=== PATIENT | male | born 1955 | race Caucasian/White ===

== ENCOUNTER 2016-09-08 10:50 | Observation (INO) ==
[2016-09-08 11:24] LABS: Lymphocytes % 16.2 %
[2016-09-08 11:26] LABS: Basophils # 0.1 K/mcL (0.0-0.2); Eosinophils # 0.2 K/mcL (0.0-0.6); Eosinophils % 2.8 %; Hemoglobin 12.2 g/dL (12.9-16.9); Immature Granulocytes % 0.7 % (0-4); Immature Platelets 7.1 % (1.1-6.1); Mean Corpuscular HGB Conc 30.5 g/dL (31.6-35.5); Mean Corpuscular Volume 85.3 fL (83.0-100.0); Monocytes # 0.5 K/mcL (0.0-1.3); Monocytes % 7.4 %; Neutrophils # 4.4 K/mcL (1.6-8.9); Red Blood Count 4.69 M/mcL (4.19-5.50); Red Cell Distribution Width 14.8 % (11.5-14.5); Segmented Neutrophils % 71.9 %
[2016-09-08 11:29] LABS: INR 1.2; Prothrombin Time 12.8 Seconds (9.4-12.1)
[2016-09-08 11:31] LABS: Activated Partial Thrombo Time 32.5 Seconds (26.0-36.0)
[2016-09-08 11:37] LABS: BUN/Creatinine Ratio 15 (6-26); Blood Urea Nitrogen 12 mg/dL (8-26); Calcium 8.8 mg/dL (8.6-10.8); Carbon Dioxide 27 mEq/L (19-29); Chloride 107 mEq/L (98-109); Glucose 125 mg/dL (70-99); Osmolality,Calculated 293 (280-300); Potassium 3.8 mEq/L (3.5-4.5); Sodium 141 mEq/L (136-145); eGFR For African Americans > 60 (> 60); eGFR For Non-African Americans > 60 (> 60)
--- NOTE | 2016-09-08 11:40 | Emergency Department Note ---
Disposition Clinical Impression: NSTEMI (non-ST elevated myocardial infarction) Disposition: Admitted As Inpatient Condition: Fair Referrals: Carl Boo MD [Primary Care Provider] - Forms: ED Satisfaction Letter Time of Disposition: 11:54 Chest Pain HPI - General Chief Complaint: ED Chest Pain Stated Complaint: Intermittent Chest Pain Time Seen by Provider: 09/08/16 11:07 Source: patient Mode of arrival: ambulatory Limitations: no limitations Vital Signs Reviewed: Yes Nursing Notes Reviewed: Yes - History of Present Illness HPI Narrative: Patient complains of intermittent left-sided chest discomfort "like I got kicked." This occurred over the past several days. He also has episodes of acute on chronic dyspnea, nausea, dizziness. He is chest pain-free at the time of my exam. Patient states he had a coronary artery stent deployed greater than 10 years ago. He had a catheterization several years ago without stent deployment. The only other complaint is that he occasionally gets right upper quadrant abdominal pain which she relates to his previous diagnosis of fatty liver Pt complaint: chest pain Onset (ago): day(s) Duration: intermittent Onset: during rest Pain Location: left chest Severity scale (1-10): 0 Quality: aching Pain Radiation: none Improves with: nothing Worsens with: nothing Associated symptoms: Reports: nausea, diaphoresis ("Sweating like a racehorse") , dyspnea Treatments prior to arrival chest pain: none - Related Data On Oral Contraceptives: No Home Medications Medication Instructions Recorded Confirmed Celecoxib [Celebrex] 200 mg PO DAILY 10/29/15 02/06/16 Clopidogrel [Plavix] 75 mg PO DAILY 10/29/15 02/06/16 Duloxetine [Cymbalta] 30 mg PO DAILY 10/29/15 02/06/16 Furosemide [Lasix] 40 mg PO BID 10/29/15 02/06/16 Isosorbide MONOnitrate (24 HR) 60 mg PO DAILY 10/29/15 02/06/16 [Imdur] Metoprolol [Lopressor] 25 mg PO BID 10/29/15 02/06/16 Montelukast [Singulair] 10 mg PO DAILY 10/29/15 02/06/16 Pantoprazole Sodium 40 mg PO DAILY 10/29/15 02/06/16 Potassium Chloride 20 meq PO DAILY 10/29/15 02/06/16 Pravastatin Sodium [Pravachol] 20 mg PO DAILY 10/29/15 02/06/16 Albuterol Neb [Proventil Neb] 2.5 mg IH Q6H PRN 10/31/15 02/06/16 Albuterol Sulfate [Albuterol 2 puff IH Q4HR PRN 10/31/15 02/06/16 Inhaler] Beclomethasone Diprop 40mcg [QVAR 1 puff IH BID 10/31/15 02/06/16 40 mcg] Cyclobenzaprine [Flexeril] 10 mg PO TID 10/31/15 02/06/16 Fluticasone Propionate Nasal 2 spr NS DAILY 10/31/15 02/06/16 [Flonase] Gabapentin [Neurontin] 900 mg PO BID 10/31/15 02/06/16 Benzonatate [Tessalon] 100 mg PO Q6H 01/28/16 02/06/16 Spironolactone [Aldactone] 100 mg PO BID 01/28/16 02/06/16 Previous Rx's Medication Instructions Recorded Docusate [Colace] 100 mg PO BID #30 capsule 02/10/16 OxyCODONE/APAP 5/325 [Percocet 1 each PO Q4HR PRN #39 tablet 02/10/16 5/325 MG] Allergies Allergy/AdvReac Type Severity Reaction Status Date / Time JUSTUS Inhibitors AdvReac Cough Verified 09/08/16 10:54 nalbuphine [From Nubain] AdvReac See Verified 09/08/16 10:54 Comments All systems ED: reviewed and negative except as stated. Constitutional: Reports: as per HPI Eyes: Reports: as per HPI ENT ED: Reports: as per HPI Cardiovascular: Reports: chest pain Respiratory: Reports: cough, dyspnea, wheezes Gastrointestinal: Reports: abdominal pain, nausea Genitourinary: Reports: as per HPI Musculoskeletal: Reports: as per HPI Integumentary: Reports: as per HPI Neurological: Reports: other (Dizziness) Psychiatric: Reports: as per HPI Endocrine: Reports: as per HPI Hematological/Lymphatic: Reports: as per HPI Allergic/Immunologic: Reports: as per HPI Chest Pain PMH - Past Medical History Medical history: Reports: arthritis, asthma, cancer, cirrhosis, COPD, coronary artery disease, DVT, diabetes, GERD, hyperlipidemia, hypertension, liver disease , other Surgical history: Reports: cancer surgery, knee replacement, orthopedic, other, other Psychiatric history: Reports: no psych history - Social History Smoking Status: Former smoker Alcohol use: Reports: none Drug use: Reports: none Physical Exam Obese male resting comfortably in no acute distress - General Limitations: no limitations General appearance: alert - Head Head exam: atraumatic - Eye Eye exam: Present: normal appearance - ENT ENT exam: normal exam - Neck Neck exam: Present: normal inspection - Chest Chest inspection: Present: normal inspection - Respiratory Respiratory exam: Present: wheezes - Cardiovascular Cardiovascular exam: Present: regular rate, normal rhythm, normal heart sounds - Abdominal Exam Abdominal exam: Present: soft, Non-Tender - Rectal Exam Rectal exam: Present: deferred - Extremities Exam Extremities exam: Present: pedal edema - Neurological Exam Neurological exam: Present: alert, oriented X3, CN II-XII intact - Psychiatric Psychiatric exam: Present: normal affect, normal mood - Skin Skin exam: Present: warm, dry, intact Course Course Narrative: Patient presents with intermittent nonexertional left-sided chest discomfort. Workup initiated - Reevaluation(s) Reevaluation #1: Troponin returns positive. Heparin drip initiated. Call placed to cardiology on-call Vital Signs Temperature 98.2 F 09/08/16 10:51 Pulse Rate 68 09/08/16 10:51 Respiratory Rate 21 09/08/16 10:51 Blood Pressure 167/73 09/08/16 10:51 O2 Sat by Pulse Oximetry 98 09/08/16 10:51 Temperature 98.2 F 09/08/16 10:51 Pulse Rate 68 09/08/16 10:51 Respiratory Rate 21 09/08/16 10:51 Blood Pressure 167/73 09/08/16 10:51 O2 Sat by Pulse Oximetry 100 09/08/16 11:12 Oxygen Delivery Oxygen Delivery Room Air Chest Pain - Lab Data Lab results reviewed: Yes I reviewed the patient's lab results. Result diagrams: 09/08/16 11:18 09/08/16 11:18 Lab Results 09/08/16 09/08/16 09/08/16 Range/Units 11:18 11:18 11:18 WBC 6.1 (4.3-11.1) K/mcL RBC 4.69 (4.19-5.50) M/mcL Hgb 12.2 L (12.9-16.9) g/dL Hct 40.0 (37.5-50.1) % MCV 85.3 (83.0-100.0) fL MCH 26.0 L (28.0-33.3) pg MCHC 30.5 L (31.6-35.5) g/dL RDW 14.8 H (11.5-14.5) % Plt Count 83 L (140-400) K/mcL MPV 11.0 (9.4-12.4) fL Immature Gran % 0.7 (0-4) % Seg Neutrophils % 71.9 % Lymphocytes % 16.2 % Monocytes % 7.4 % Eosinophils % 2.8 % Basophils % 1.0 % Neutrophils # 4.4 (1.6-8.9) K/mcL Lymphocytes # 1.0 (0.6-4.6) K/mcL Monocytes # 0.5 (0.0-1.3) K/mcL Eosinophils # 0.2 (0.0-0.6) K/mcL Basophils # 0.1 (0.0-0.2) K/mcL Immature Plt Fraction 7.1 H (1.1-6.1) % PT 12.8 H (9.4-12.1) Seconds INR 1.2 APTT 32.5 (26.0-36.0) Seconds Sodium 141 (136-145) mEq/L Potassium 3.8 (3.5-4.5) mEq/L Chloride 107 (98-109) mEq/L Carbon Dioxide 27 (19-29) mEq/L BUN 12 (8-26) mg/dL Creatinine 0.82 (0.72-1.25) mg/dL Est GFR ( Amer) > 60 (> 60) Est GFR (Non-Af Amer) > 60 (> 60) BUN/Creatinine Ratio 15 (6-26) Glucose 125 H (70-99) mg/dL Calculated Osmolality 293 (280-300) Calcium 8.8 (8.6-10.8) mg/dL Troponin I (0-0.03) ng/mL 09/08/16 Range/Units 11:18 WBC (4.3-11.1) K/mcL RBC (4.19-5.50) M/mcL Hgb (12.9-16.9) g/dL Hct (37.5-50.1) % MCV (83.0-100.0) fL MCH (28.0-33.3) pg MCHC (31.6-35.5) g/dL RDW (11.5-14.5) % Plt Count (140-400) K/mcL MPV (9.4-12.4) fL Immature Gran % (0-4) % Seg Neutrophils % % Lymphocytes % % Monocytes % % Eosinophils % % Basophils % % Neutrophils # (1.6-8.9) K/mcL Lymphocytes # (0.6-4.6) K/mcL Monocytes # (0.0-1.3) K/mcL Eosinophils # (0.0-0.6) K/mcL Basophils # (0.0-0.2) K/mcL Immature Plt Fraction (1.1-6.1) % PT (9.4-12.1) Seconds INR APTT (26.0-36.0) Seconds Sodium (136-145) mEq/L Potassium (3.5-4.5) mEq/L Chloride (98-109) mEq/L Carbon Dioxide (19-29) mEq/L BUN (8-26) mg/dL Creatinine (0.72-1.25) mg/dL Est GFR ( Amer) (> 60) Est GFR (Non-Af Amer) (> 60) BUN/Creatinine Ratio (6-26) Glucose (70-99) mg/dL Calculated Osmolality (280-300) Calcium (8.6-10.8) mg/dL Troponin I 0.55 H* (0-0.03) ng/mL - Radiology Data Radiology results reviewed: Yes I reviewed the patient's radiology results. - EKG Data EKG attestation: Yes I reviewed and interpreted this EKG. EKG results narrative: Normal sinus rhythm left axis left bundle branch block rate 66 P-R 151 QRS 155 QT/QTc 449/463. Study compared to previous dated 08/22/15 Heart Score - Score History: Moderately Suspicious EKG: Non Specific repolarisation Disturbance Age: 45-65 Risk Factors: 1-2 risk factors Troponin: Greater than 3x normal limit HEART Score Total: 6 Critical Care Time Critical Care Time: Yes Total Critical Care Time: 45 Attestation: Patient presented with chest pain, troponin positive, IV heparin drip started. Patient pain free
[2016-09-08 11:42] LABS: Platelet Count 83 K/mcL (140-400)
[2016-09-08] MEDS ORDERED: Aspirin 81 MG TAB.CHEW PO STA (11:56)
[2016-09-08] MEDS ORDERED: Heparin 25,000 UNIT/500 ML D5W 25,000 UNIT/500 ML MLS IVC SCH (12:00)
[2016-09-08] MEDS: Heparin 25,000 UNIT/500 ML D5W 25,000 UNIT/500 ML MLS IVC SCH (12:17)
--- NOTE | 2016-09-08 12:51 | Cardiology Consult Note ---
<Raffi [place] - Last Filed: 09/08/16 12:46> Date of Encounter: 09/08/16 Time of Encounter: 12:46 Assessment and Plan (1) NSTEMI (non-ST elevated myocardial infarction) Current Visit: Yes Status: Acute NSTEMI. Troponin 0.55. New LBBB. Continues to have intermittent chest pain. H/o LAD stent in 2005. [facility] indication, risk, benefits, and alternatives discussed and he agrees to proceed. Heparin gtt per ACS protocal started. NTG PRN chest pain. Continue asa, statin, plavix, and bb. (2) CAD (coronary artery disease) Current Visit: Yes Status: Acute H/o LAD stent in 2005. Continue asa, plavix, atatin, and bb. Agressive risk factor modification. Qualifiers: Coronary Disease-Associated Artery/Lesion type: [place] artery [place] vs. transplanted heart: [place] heart Associated angina: with unstable angina Qualified Code(s): I25.110 - Atherosclerotic heart disease of [place] coronary artery with unstable angina pectoris Discussion w patient/family: The assessment and plan as outlined above was discussed with the patient and/or family members who expressed understanding and agreement. All questions were answered. Thank you for involving us in the care of your patient. Please call with any questions. History of Present Illness Consult date: 09/08/16 Requesting physician: Dominik Morrow Consult reason: NSTEMI Chief complaint: Chest pain for three days History of present illness: Mr. Malin is a 61 year old male with a history of PCI to his LAD in 2005, HTN, HLD , GERALDO, DVT, COPD, non alcoholic chirrosis, and morbid obesity who presents with intermittent chest pain over the past three days. He pain is described as a mid- sternal pressure radiating down his left arm associated with diaphoresis, nausea , and SOB. Occurs at rest or activity. Denies alleviating factors. Initial work- up reveals new LBBB and troponin 0.55. He is currently pain free. Past Med Surg Social Fam HX - Past Medical History Attestation: Yes The following information was validated with the patient. Medical history: arthritis, asthma, cancer, cirrhosis, COPD, coronary artery disease, DVT, diabetes, GERD, hyperlipidemia, hypertension, liver disease, other Psychiatric history: no psych history - Past Surgical History Surgical History: cancer surgery, knee replacement, orthopedic, other, other - Social History Smoking Status: Former smoker Smokeless Tobacco Status: No Alcohol use: none Drug use: none - Family History Mother Living Status: Still Living Hx Family Cancer: Yes (reproductive cancer) Father Living Status: Hx Family Cardiac Disorders: Yes Medications and Allergies Celecoxib [Celebrex] 200 mg PO DAILY 10/29/15 [History] Clopidogrel [Plavix] 75 mg PO DAILY 10/29/15 [History] Duloxetine [Cymbalta] 30 mg PO DAILY 10/29/15 [History] Furosemide [Lasix] 40 mg PO BID 10/29/15 [History] Isosorbide MONOnitrate (24 HR) [Imdur] 60 mg PO DAILY 10/29/15 [History] Metoprolol [Lopressor] 25 mg PO BID 10/29/15 [History] Montelukast [Singulair] 10 mg PO DAILY 10/29/15 [History] Pantoprazole Sodium 40 mg PO DAILY 10/29/15 [History] Potassium Chloride 20 meq PO DAILY 10/29/15 [History] Pravastatin Sodium [Pravachol] 20 mg PO DAILY 10/29/15 [History] Albuterol Neb [Proventil Neb] 2.5 mg IH Q6H PRN 10/31/15 [History] Albuterol Sulfate [Albuterol Inhaler] 2 puff IH Q4HR PRN 10/31/15 [History] Cyclobenzaprine [Flexeril] 10 mg PO TID 10/31/15 [History] Fluticasone Propionate Nasal [Flonase] 2 spr NS DAILY 10/31/15 [History] Gabapentin [Neurontin] 900 mg PO BID 10/31/15 [History] Spironolactone [Aldactone] 100 mg PO BID 01/28/16 [History] BuPROPion XL (24 HR) [Wellbutrin XL] 150 mg PO DAILY 09/08/16 [History] Meloxicam [Meloxicam] 7.5 mg PO DAILY 09/08/16 [History] OxyCODONE Immed Rel [Roxicodone 5 MG] 5 mg PO BID PRN 09/08/16 [History] Rifaximin [Xifaxan] 550 mg PO BID 09/08/16 [History] Allergies JUSTUS Inhibitors Adverse Reaction (Verified 09/08/16 10:54) Cough nalbuphine [From Nubain] Adverse Reaction (Verified 09/08/16 10:54) See Comments "ADVERSE REACTION IN ER GIVEN MEDS TO REVERSE" PATIENT UNABLE TO CLARIFY All Systems Review: A 10-system review of systems was performed and is negative for pertinent findings except as documented above in the HPI. Physical Examination Vital Signs, Last 4 Hours Temp Pulse Resp BP Pulse Ox 09/08/16 12:24 63 18 121/63 99 09/08/16 11:12 100 09/08/16 10:51 98.2 F 68 21 167/73 98 General: Conversant, No Apparent Distress HEENT: Atraumatic, Normocephaly, Mucus Membranes Moist Neck: No JVD, Normal carotid pulses Cardiac: Reg Rate and Rhythm, Normal S1 and S2, No Murmur Lungs: Normal Breath Sounds, No Wheeze, Rales, Rhonchi, Other (mild wheezes upper chest.) Neuro: Alert and responsive, No focal deficits noted Abdomen: Soft, Non-Tender Skin: No rashes noted on visualized skin Musculoskeletal: No Chest Wall Tenderness Extremities: No Clubbing, No Cyanosis, No Edema, Normal Pulses Results 09/08/16 11:18 09/08/16 11:18 Lab Results 09/08/16 09/08/16 09/08/16 11:18 11:18 11:18 WBC 6.1 Hgb 12.2 L Hct 40.0 Plt Count 83 L INR 1.2 APTT 32.5 Sodium 141 Potassium 3.8 Chloride 107 Carbon Dioxide 27 BUN 12 Creatinine 0.82 Glucose 125 H Calcium 8.8 Troponin I 09/08/16 11:18 WBC Hgb Hct Plt Count INR APTT Sodium Potassium Chloride Carbon Dioxide BUN Creatinine Glucose Calcium Troponin I 0.55 H* - EKG Interpretation EKG results cardiology: personally reviewed (SR Andrey ruiz) Consult Discharge Plan - Plan Referrals: Carl Boo MD [Primary Care Provider] - <Zahida Coates - Last Filed: 09/08/16 13:43> Assessment and Plan Discussion w patient/family: The assessment and plan as outlined above was discussed with the patient and/or family members who expressed understanding and agreement. All questions were answered. Thank you for involving us in the care of your patient. Please call with any questions. History of Present Illness History of present illness: Mr. Malin is a 61 year old male All Systems Review: A 10-system review of systems was performed and is negative for pertinent findings except as documented above in the HPI. Physical Examination Vital Signs, Last 4 Hours Pulse Resp BP Pulse Ox 09/08/16 13:18 60 17 111/63 100 Results 09/08/16 11:18 09/08/16 11:18 - Attending Attestation I examined this patient and my medical decision-making was reviewed with the CHARACTER ACTOR/PA/Advanced Practice Nurse/Resident Physician. I agree with the documented findings, disposition and treatment plan. Mr. Malin presents with an NSTEMI. He has a history of CAD and remote stenting. He's had CP with exertion and also at rest. He reports being unable to walk around his home without exertional chest pain for the past few days. He also presents with elevated troponin and a LBBB which appears new when compared to ECG 1 year ago. However, he is hemodynamically stable. Heparin has been started. We discussed proceeding with [facility]. The R/B/A of the procedure were discussed with the patient who expressed understanding and agreement to proceed.
--- NOTE | 2016-09-08 13:20 | Internal Med History&Physical ---
Date of Encounter: 09/08/16 Time of Encounter: 13:16 Assessment and Plan (1) CAD (coronary artery disease) Current visit: Yes Status: Acute stent 10 years ago now presents with nstemi Qualifiers: Coronary Disease-Associated Artery/Lesion type: [place] artery [place] vs. transplanted heart: [place] heart Associated angina: with unstable angina Qualified Code(s): I25.110 - Atherosclerotic heart disease of [place] coronary artery with unstable angina pectoris (2) NSTEMI (non-ST elevated myocardial infarction) Current visit: Yes Status: Acute troponin 0.55 seen in ER by cardiology cath planned for today (3) COPD (chronic obstructive pulmonary disease) Current visit: No Status: Chronic copd mild wheezing will start on duoneb prn Qualifiers: COPD type: unspecified COPD Qualified Code(s): J44.9 - Chronic obstructive pulmonary disease, unspecified (4) Hypertension Current visit: No Status: Chronic well controlled Qualifiers: Hypertension type: essential hypertension Qualified Code(s): I10 - Essential (primary) hypertension (5) Liver cirrhosis Current visit: No Status: Chronic non alcoholic cirrhosis Qualifiers: Hepatic cirrhosis type: unspecified hepatic cirrhosis Ascites presence: without ascites Qualified Code(s): K74.60 - Unspecified cirrhosis of liver (6) Morbid obesity with BMI of 50.0-59.9, adult Current visit: No Status: Chronic chronic (7) Obstructive sleep apnea Current visit: No Status: Chronic chronic Internal Medicine - H&P: HPI Chief complaint: nstemi Admitted From: Emergency Dept Plans for Post Hospital Care: Home History of present illness: Mr. Malin is a 61 year old male Patient with history of CAD had a stent about 10 years ago, hypertension, obesity, COPD and asthma, obstructive sleep apnea, recurrence bronchitis, and liver cirrhosis stage IV nonalcoholic cirrhosis Patient presented to emergency room with 3 days of recurrent chest pain described as a pressure and tightness radiating up to his neck and his left arm associated with shortness of breath and today the chest pain got worse and presented to the emergency room He is now chest pain-free troponin 0.55 He has been seen by cardiology and is planned for cardiac Cath probably today Past Med Surg Social Fam HX - Past Medical History Medical history: arthritis, asthma, cancer, cirrhosis, COPD, coronary artery disease, DVT, diabetes, GERD, hyperlipidemia, hypertension, liver disease, other Psychiatric history: no psych history - Past Surgical History Surgical History: cancer surgery, knee replacement, orthopedic, other, other - Social History Smoking Status: Former smoker Smokeless Tobacco Status: No Alcohol use: none Drug use: none - Family History Mother Living Status: Still Living Hx Family Cancer: Yes (reproductive cancer) Father Living Status: Hx Family Cardiac Disorders: Yes Internal Medicine - H&P: Meds Celecoxib [Celebrex] 200 mg PO DAILY 10/29/15 [History] Clopidogrel [Plavix] 75 mg PO DAILY 10/29/15 [History] Duloxetine [Cymbalta] 30 mg PO DAILY 10/29/15 [History] Furosemide [Lasix] 40 mg PO BID 10/29/15 [History] Isosorbide MONOnitrate (24 HR) [Imdur] 60 mg PO DAILY 10/29/15 [History] Metoprolol [Lopressor] 25 mg PO BID 10/29/15 [History] Montelukast [Singulair] 10 mg PO DAILY 10/29/15 [History] Pantoprazole Sodium 40 mg PO DAILY 10/29/15 [History] Potassium Chloride 20 meq PO DAILY 10/29/15 [History] Pravastatin Sodium [Pravachol] 20 mg PO DAILY 10/29/15 [History] Albuterol Neb [Proventil Neb] 2.5 mg IH Q6H PRN 10/31/15 [History] Albuterol Sulfate [Albuterol Inhaler] 2 puff IH Q4HR PRN 10/31/15 [History] Cyclobenzaprine [Flexeril] 10 mg PO TID 10/31/15 [History] Fluticasone Propionate Nasal [Flonase] 2 spr NS DAILY 10/31/15 [History] Gabapentin [Neurontin] 900 mg PO BID 10/31/15 [History] Spironolactone [Aldactone] 100 mg PO BID 01/28/16 [History] BuPROPion XL (24 HR) [Wellbutrin XL] 150 mg PO DAILY 09/08/16 [History] Meloxicam [Meloxicam] 7.5 mg PO DAILY 09/08/16 [History] OxyCODONE Immed Rel [Roxicodone 5 MG] 5 mg PO BID PRN 09/08/16 [History] Rifaximin [Xifaxan] 550 mg PO BID 09/08/16 [History] Allergies JUSTUS Inhibitors Adverse Reaction (Verified 09/08/16 10:54) Cough nalbuphine [From Nubain] Adverse Reaction (Verified 09/08/16 10:54) See Comments "ADVERSE REACTION IN ER GIVEN MEDS TO REVERSE" PATIENT UNABLE TO CLARIFY All Systems PM: A 10-system review of systems was performed and is negative for pertinent findings except as documented above in the HPI. - Constitutional Constitutional: no chills, no fever(s), no night sweats - EENT Eyes: no change in vision, no discharge, no pain, no photophobia Ears: no ear discharge, no ear pain, no tinnitus Nose, mouth and throat: no dysphagia, no nasal discharge, no neck pain, no sore throat - Cardiovascular Cardiovascular ROS IM: chest pain, dyspnea, dyspnea on exertion - Respiratory Respiratory: dyspnea, dyspnea on exertion - Gastrointestinal Gastrointestinal: no abdominal pain, no diarrhea, no hematemesis, no hematochezia, no melena, no nausea, no vomiting - Musculoskeletal Musculoskeletal ROS IM: no numbness, no tingling - Integumentary Integumentary IM: no rash, no unusual bruising - Neurological Neurological ROS: no confusion, no convulsions, no focal weakness, no numbness, no tingling, no tremor(s) - Hematologic/Lymphatic Hematologic/Lymphatic: no easy bruising - Constitutional Vitals: Temp Pulse Resp BP Pulse Ox 98.2 F 63 18 121/63 99 09/08/16 10:51 09/08/16 12:24 09/08/16 12:24 09/08/16 12:24 09/08/16 12:24 - Head Head exam: Present: atraumatic, normocephalic - Eye Eye exam: Present: PERRL, conjuntiva pink, sclera anicteric Pupils: Present: PERRL - Neck Neck exam general surgery: Present: supple, trachea midline. Absent: lymphadenopathy - Respiratory Respiratory exam: Present: rhonchi, wheezes - Cardiovascular Cardiovascular exam: Present: RRR, systolic murmur - GI/Abdominal GI/Abdominal exam: Present: normal bowel sounds, soft, no peritoneal signs. Absent: distended, tenderness Internal Med - H&P Results - Labs CBC & Chem 7: 09/08/16 11:18 09/08/16 11:18
[2016-09-08] MEDS ORDERED: *HR* Morphine 2 MG/ML SYRINGE IVP PRN (13:21)
[2016-09-08] MEDS ORDERED: Mag Hydrox/Al Hydrox/Simeth 30 ML UDC PO PRN (13:21)
[2016-09-08] MEDS ORDERED: Naloxone 0.4 MG/ML INJ IVP PRN (13:21)
[2016-09-08] MEDS ORDERED: MOM Conc 10 ML UD.LIQ PO PRN (13:21)
[2016-09-08] MEDS ORDERED: Nitroglycerin 1 INCH/GM PACKET TP ONE (15:43)
[2016-09-08] MEDS: 0.9 % Sodium Chloride 1,000 ML IVC SCH (17:23)
[2016-09-08 19:26] LABS: INR 1.2; Prothrombin Time 12.7 Seconds (9.4-12.1)
[2016-09-08 19:29] LABS: Activated Partial Thrombo Time 37.5 Seconds (26.0-36.0)
[2016-09-08 19:37] LABS: Hemoglobin 11.9 g/dL (12.9-16.9)
[2016-09-08 19:39] LABS: Hematocrit 38.8 % (37.5-50.1); Immature Platelets 8.5 % (1.1-6.1); Mean Corpuscular HGB Conc 30.7 g/dL (31.6-35.5); Mean Corpuscular Hemoglobin 26.1 pg (28.0-33.3); Mean Corpuscular Volume 85.1 fL (83.0-100.0); Mean Platelet Volume 11.8 fL (9.4-12.4); Red Blood Count 4.56 M/mcL (4.19-5.50)
[2016-09-08] MEDS ORDERED: *HR* Heparin 5,000 UNIT/ML VIAL IVP PRN (20:05)
[2016-09-08] MEDS ORDERED: *HR* Heparin 5,000 UNIT/ML VIAL ONE (20:08)
[2016-09-08] MEDS: *HR* Heparin 5,000 UNIT/ML VIAL IVP PRN (21:13)
[2016-09-08] MEDS: Gabapentin 300 MG CAPSULE PO SCH (21:25)
[2016-09-08] MEDS: (Rifaximin [Xifaxan] 550 MG) PO SCH (21:26)
[2016-09-09 01:40] LABS: Basophils % 0.7 %; Hematocrit 37.6 % (37.5-50.1); Hemoglobin 11.7 g/dL (12.9-16.9); Mean Corpuscular HGB Conc 31.1 g/dL (31.6-35.5); Mean Corpuscular Hemoglobin 26.1 pg (28.0-33.3)
[2016-09-09 01:42] LABS: Eosinophils # 0.2 K/mcL (0.0-0.6); Immature Granulocytes % 0.5 % (0-4); Immature Platelets 7.9 % (1.1-6.1); Lymphocytes # 1.1 K/mcL (0.6-4.6); Mean Corpuscular Volume 83.7 fL (83.0-100.0); Mean Platelet Volume 11.5 fL (9.4-12.4); Monocytes # 0.4 K/mcL (0.0-1.3); Monocytes % 6.9 %; Red Blood Count 4.49 M/mcL (4.19-5.50); Red Cell Distribution Width 14.8 % (11.5-14.5); Segmented Neutrophils % 69.9 %
[2016-09-09 01:45] LABS: Platelet Count 69 K/mcL (140-400)
[2016-09-09 01:59] LABS: Alanine Aminotransferase 12 Units/L (0-55); Albumin 3.3 g/dL (3.5-5.0); Albumin/Globulin Ratio 1.3 (1.1-2.2); Alkaline Phosphatase 52 Units/L (38-126); Aspartate Amino Transferase 22 Units/L (5-34); BUN/Creatinine Ratio 16 (6-26); Bilirubin,Total 1.1 mg/dL (0.2-1.2); Blood Urea Nitrogen 12 mg/dL (8-26); Calcium 8.5 mg/dL (8.6-10.8); Carbon Dioxide 25 mEq/L (19-29); Chloride 107 mEq/L (98-109); Cholesterol 108 mg/dL (< 200); Globulin 2.5 g/dL (2.4-3.5); Glucose 101 mg/dL (70-99); HDL Cholesterol 37 mg/dL (40-59); Magnesium 1.2 mg/dL (1.6-2.6); Osmolality,Calculated 288 (280-300); Potassium 3.4 mEq/L (3.5-4.5); Sodium 139 mEq/L (136-145); Total Protein 5.8 g/dL (6.0-8.3); Triglycerides 121 mg/dL (< 150); eGFR For African Americans > 60 (> 60); eGFR For Non-African Americans > 60 (> 60)
[2016-09-09 02:00] LABS: Chol/HDL Ratio 2.9 (0-4.9); LDL Cholesterol,Calculated 47 mg/dL (0-99)
[2016-09-09] MEDS: *HR* Heparin 5,000 UNIT/ML VIAL IVP PRN (02:07)
[2016-09-09] MEDS: 0.9 % Sodium Chloride 1,000 ML IVC SCH (07:23)
[2016-09-09] MEDS: Heparin 25,000 UNIT/500 ML D5W 25,000 UNIT/500 ML MLS IVC SCH (08:29)
[2016-09-09] MEDS ORDERED: 0.9 % Sodium Chloride 2,000 ML ONE (08:32)
[2016-09-09] MEDS ORDERED: *HR* Heparin 10,000 UNIT/10 ML VIAL ONE (08:32)
[2016-09-09] MEDS ORDERED: Heparin 1,000 UNITS/500 mL NS 500 ML ONE (08:32)
[2016-09-09] MEDS ORDERED: *HR* Midazolam HCl 2 MG/2 ML VIAL ONE ×2 (08:34→09:47)
[2016-09-09] MEDS ORDERED: Nitroglycerin 1,000 MCG/10 ML VIAL IV ONE (08:34)
[2016-09-09] MEDS ORDERED: *HR* FentaNYL (PF) 100 MCG/2 ML VIAL ONE (08:34)
[2016-09-09] MEDS ORDERED: Verapamil 5 MG/2 ML VIAL ONE (08:34)
[2016-09-09] MEDS ORDERED: Fluticasone Propionate Nasal 50 MCG/SPRAY BOTTLE NS SCH (09:00)
[2016-09-09] MEDS ORDERED: BuPROPion XL (24 HR) 150 MG TABLET PO SCH (09:00)
[2016-09-09] MEDS ORDERED: Magnesium Sulfate 2 GM in D5% in Water 100 ML IVPB ONE (09:35)
--- NOTE | 2016-09-09 09:38 | Pre-Sedation Evaluation ---
Pre-sedation evaluation - Pre-sedation checklist Date of procedure: 09/09/16 Procedure: Cardiac Catheterization Recent Vitals: Last Vital Signs Temp 98.1 F 09/09/16 06:52 Pulse 78 09/09/16 06:52 Resp 18 09/09/16 06:52 BP 120/53 09/09/16 06:52 Pulse Ox 95 09/09/16 06:52 H&P (including ROS) documented in medical record: Yes Previous reaction to sedatives/anesthetics: Yes; explain in comment Dietary Status: NPO after Midnight ASA Classification *see protocol: CLASS II-Mild systemic disease Plan of Care: Pt appropriate candidate for procedure/moderate/conscious sedation , Risks/benefits of procedure/sedation discussed w/ patient/family
[2016-09-09] MEDS ORDERED: Perflutren Lipid Microsphere 1.3 ML in 0.9 % Sodium Chloride 8.7 ML IVP ONE (09:54)
--- NOTE | 2016-09-09 10:22 | Invasive Diagnostic Lab Proc ---
Name: Heber Malin Date of Study: 09/09/2016 Date: 1955 Ht: 65.0in Medical Record#: [id number] Age: 61 Wt: 306.44lb Gender: Male BSA: 2.37 Order #: [id number] BMI: 51.06 Physicians Procedure Physician: Raheem Hamlin MD, [facility] Referring MD: Referring MD: Staff Name Position Time In Sites, Carlyn RT (R) Monitor 09:22 AM Claire Mejia RT Scrub 09:22 AM Danica Milian RN Ceo Na 09:22 AM Indications Indication Non-Stemi Procedures Performed Procedure L HRT ARTERY/VENTRICLE ANGIO Pre-Procedure Checklist Informed consent is complete signed and on chart. H\\T\\P is on chart. ID band is on and ID verified with patient. Patient NPO for procedure The procedure was described for the patient and questions were answered. Blood Pressure: 120/53 ECG is on chart. Plan of Care Patient will tolerate the procedure without complications. Adequate level of comfort will be maintained. Hemodynamics will remain stable Patient will recover from procedure without complications. Respiratory function will be maintained. Cardiac rhythm will remain stable. Patient temperature will be maintained. Patient and/or family have verbalized understanding of the procedure. Patient Education Chief Complaint/Reason for Test: Cardiac Cath Developmental Category: Adult (18-64 years) Developmentally Appropriate for Age: Yes Learning Barriers: None Education Needs: Procedure Education Method: Verbal Information Taught: Cardiac Cath Educational Evaluation: Able to repeat information Intravenous Access Time IV Size Location DC'd Fluid/Drip Rate Units RN 18g 1 1/4" Peripheral-Lock On Arrival 0.9NaCl 25 ml/hr Danica Milian RN Allergies JUSTUS Inhibitor JUSTUS Inhibitors NUBAIN nalbuphine Vital Signs Time BP (mmHg) HR (bpm) O2 Sat. RR (bpm) LOC 120 / 53 78 95 % 16 5 = Fully awake and oriented or at pre-proc level 09:35 AM / % 5 = Fully awake and oriented or at pre-proc level 09:35 AM / % 4 = Oriented but drowsy Procedural Medications Time Medication Dose Units Method Given By 09:34 AM Oxygen 2 L/min nasal cannula Danica Milian RN 09:34 AM Versed 2 mg Intravenous Danica Milian RN 09:34 AM Fentanyl 50 mcg Intravenous Danica Milian RN 09:46 AM Lidocaine 2% 0.5 ml Subcutaneous Raheem Hamlin MD, FACC 09:48 AM Fentanyl 25 mcg Intravenous Danica Milian RN 09:48 AM Versed 2 mg Intravenous Danica Milian RN 09:54 AM Nitroglycerin 200 mcg Verapamil 2.5 mg Intraarterial Raheem Hamlin MD, FACC 10:07 AM Nitroglycerin 200 mcg Intracoronary Raheem Hamlin MD ASA Classification: CLASS II- Mild systemic disease (i.e. well-controlled diabetes, hypertension, asthma, cigarette smoking) Monserrat Score Preprocedure Postprocedure Activity 2- Moves 4 extremities sustained head lift Activity 2- Moves 4 extremities sustained head lift Circulation 2- SBP +/= 20 points of pre-anesthetic level Circulation 2- SBP +/= 20 points of pre-anesthetic level Consciousness 2- Awake and alert oriented x 3 Consciousness 2- Awake and alert oriented x 3 O2 Saturation 2- Able to maintain O2 satruation of 92% on room air O2 Saturation 2- Able to maintain O2 satruation of 92% on room air Respiratory 2- Able to deep breathe and cough well Respiratory 2- Able to deep breathe and cough well Total Score 10 Total Score 10 Contrast Agent: Isovue Diagnostic Contrast: 71 ml Total Contrast: 71 ml Fluoro Dose: 346 mGy Procedure Log Time Note Enter By 09:22 AM 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 tsites 09:22 AM Procedure start 09:22 tsites 09:22 AM Carlyn Goel RT (R) Position: Monitor Time in: 09:22 tsites 09:22 AM Claire Mejia RT Position: Scrub Time in: :22 tsites 09:22 AM Danica Milian RN Position: Ceo Na Time in: 09:22 tsites 09:34 AM Hair removed from procedure site in procedure lab using clippers. Right wrist and bilateral groin prepped with Chloraprep by Carlyn Goel (R), safety strap applied then patient was draped. Skin intact. tsites 09:34 AM Time: 09:34 Oxygen on at 2 L/min per nasal cannula by Danica Milian RN tsites 09:34 AM Time: 09:34 Versed 2 mg Intravenous Given by Danica Milian RN tsites 09:34 AM Time: 09:34 Fentanyl 50 mcg Intravenous Given by Danica Milian RN tsites 09:35 AM Time: 09:35 Patient comfortable and pain free: Yes tsites 09:35 AM Time: 09:35LOC: 5 = Fully awake and oriented or at pre-proc level tsites 09:35 AM Clinical Presentation: Non-STEMI tsites 09:46 AM Time: 09:46 0.5 ml Lidocaine 2% to right radial Subcutaneous Given by Raheem Hamlin MD, FAC tsites 09:48 AM Time: 09:48 Fentanyl 25 mcg Intravenous Given by Danica Milian RN tsites 09:48 AM Time: 09:48 Versed 2 mg Intravenous Given by Danica Milian RN tsites 09:48 AM ultrasound utilized for vascular access tsites 09:52 AM Time: 09:35LOC: 4 = Oriented but drowsy tsites 09:52 AM Time: 09:35 Patient comfortable and pain free: Yes tsites 09:52 AM Unsuccessful access attempt # 1 into the right Radial artery. Manual pressure applied to achieve hemostasis.. tsites 09:54 AM Access obtained by percutaneous puncture. 5Fr 10cm Terumo Glidesheath sheath placed in right Radial artery. [id number] tsites 09:54 AM Time: 09:54 Patient given 200 mcg Nitroglycerin, and 2.5 mg Verapamil Intraarterial by Raheem Hamlin MD, FACC tsites 09:55 AM 5Fr FL3.5 catheter inserted over the wire [id number] tsites 09:56 AM 0.035 260cm Navilyst 3mmJ wire [id number] tsites 09:58 AM unable to advance wire tsites 09:58 AM Wire removed tsites 09:58 AM 0.035 260cm Bentson wire [id number] tsites 09:58 AM Wire removed tsites 09:59 AM RCA angiography performed in multiple views. tsites 10:00 AM Lesion found in Mid RCA. Pre Stenosis: 30 Pre CIPRIANO Flow: tsites 10:01 AM wire reinserted catheter removed tsites 10:01 AM 5Fr FR5 catheter inserted over the wire [id number] tsites 10:02 AM LCA angiography performed in multiple views. tsites 10:04 AM Coronary Dominance: Co-dominant tsites 10:04 AM Lesion found in 1st Marginal. Pre Stenosis: 20 Pre CIPRIANO Flow: tsites 10:05 AM Lesion found in 2nd Marginal. Pre Stenosis: 20 Pre CIPRIANO Flow: tsites 10:05 AM Lesion found in Proximal LAD. Pre Stenosis: 20 Pre CIPRIANO Flow: tsites 10:05 AM Lesion found in Mid LAD. Pre Stenosis: 15 Pre CIPRIANO Flow: 2: Partial Flow/Perfusion (> 1 but < 3) tsites 10:06 AM Lesion found in Mid RCA. Pre Stenosis: 30 Pre CIPRIANO Flow: tsites 10:06 AM Lesion found in Left PDA. Pre Stenosis: 15 Pre CIPRIANO Flow: tsites 10:06 AM Proximal Left Anterior Descending Coronary Artery with 20% stenosis. If graft is supplying this territory, 0 % stenosis. tsites 10:06 AM Mid/Distal Left Anterior Descending Coronary Artery and diagonal branches with 15% stenosis. If graft is supplying this area, 0 % stenosis tsites 10:06 AM Circumflex, Obtuse Marginal, Left Posterior Descending, and Left Posterolateral Coronary Arteries with 20 % stenosis. If graft is supplying this area, 0 % stenosis tsites 10:06 AM Right Coronary, Right Posterior Descending Arteries with Right Posterolateral and Acute Marginal branches with 30 % stenosis. If graft is supplying this area, 0 % stenosis tsites 10:07 AM wire reinserted catheter removed tsites 10:07 AM 5Fr Pigtail catheter inserted over the wire [facility] tsites 10:07 AM Catheter selectively placed in left ventricle tsites 10:07 AM Bolus angiogram of left Ventricle complete: 10 ml/sec for a total of 24 mls tsites 10:07 AM Time: 10:07 Nitroglycerin 200 mcg Intracoronary Given by Raheem Hamlin MD tsites 10:08 AM wire reinserted catheter removed tsites 10:08 AM Procedure completed at 10:08 tsites 10:09 AM Sign out completed: Radiation Dose 346 mGy Fluoro Time: 1.5 Isovue 370 - 200ml contrast 70.6 ml given by Raheem Hamlin MD, [facility]. Complications: NoneCardiac Rehab Consult needed: NoConfirmed administered medications: Yes tsites 10:09 AM Isovue 370 - 500ml,1 Bottle(s) used. tsites 10:09 AM Arterial sheath pulled, Vasc Band closure device used and was Successful S/N. tsites 10:10 AM 12 ml air in Vasc Band. tsites 10:10 AM Post ECG NSR tsites 10:10 AM Post Blood Pressure 159/82 tsites 10:10 AM 10:10 Post Pulses Rt Radial 1+ tsites 10:10 AM Information taught Cardiac Cath and Vasc Band tsites 10:10 AM Education needs Procedure, Plan of Care, and Responsibilities of Patient in Care tsites 10:10 AM Learning barriers :None tsites 10:10 AM Education Methods Verbal tsites 10:10 AM Education evaluation Able to repeat information tsites 10:10 AM Site status No bleeding/hematoma - Rt Wrist as reported by Claire Mejia at 10:10 tsites 10:12 AM Report given to len LEÓN Pt taken to 2A Room #24. 10:12 tsites 10:12 AM Delay to floor No tsites 10:12 AM Patient out of room: 10:12 tsites 10:12 AM Family placed in consult room. tsites Complications Complication None Post Procedure Information Blood Pressure: 159/82 mmHg Rhythm: NSR Post procedural instructions were given Closure Device Time Device Success/Fail 09/09/2016 10:11:00 AM Mechanical Compression Successful Site Checks Time Location Status Staff Sheath In? Note 10:10 AM Rt Wrist No bleeding/hematoma Claire Mejia RT Pulses Time Site Pre-Procedure Post-Procedure Note Bilateral DP \\T\\ PT 2+ Rt Radial and lt radial 1+ 10:10:00 AM Rt Radial 1+ Updated by Carlyn Goel RT (R) on 09/09/2016 10:16:08 AM Carlyn Goel RT electronically signed on 09/09/2016 10:18:03 AM with status of Final
[2016-09-09] MEDS: Gabapentin 300 MG CAPSULE PO SCH (10:50)
[2016-09-09] MEDS: (Rifaximin [Xifaxan] 550 MG) PO SCH (10:52)
[2016-09-09] MEDS ORDERED: Albuterol 2.5 MG/3 ML NEBULIZER IH PRN (12:18)
--- NOTE | 2016-09-09 12:22 | Event Note ---
Date of Encounter: 09/09/16 Time of Encounter: 12:20 - Cardiology Event Note S/p LHC. Discussed with Dr. Hamlin, minimal to mild CAD. Stent patent. LAD with sluggish flow. Recommends starting imdur and increase as needed for chest pain. Close out-pt f/u. Will schedule in cardiology office in one week. Continue asa, statin, and bb.
[2016-09-09] MEDS ORDERED: Isosorbide MONOnitrate (24 HR) 60 MG TAB.ER.24H PO SCH (12:30)
[2016-09-09 15:48] VITALS: BP 117/66
--- NOTE | 2016-09-09 15:49 | Internal Med Progress Note ---
Date of Encounter: 09/09/16 Time of Encounter: 15:46 - Assessment and plan (1) NSTEMI (non-ST elevated myocardial infarction) Current Visit: Yes Status: Acute Assessment and plan: NSTEMI. Troponin 0.55. New LBBB. H/o LAD stent in 2005. S/p LHC. minimal to mild CAD. Stent patent. LAD with sluggish flow. cardio Recommends starting imdur and increase as needed for chest pain. Continue asa, statin, plavix, and bb. appreciate cardio recommendations, await ECHO results heparin drip has been stopped. (2) Hypertension Current Visit: No Status: Chronic Assessment and plan: stable, continue home meds Qualifiers: Hypertension type: essential hypertension Qualified Code(s): I10 - Essential (primary) hypertension (3) COPD (chronic obstructive pulmonary disease) Current Visit: No Status: Chronic Assessment and plan: stable Qualifiers: COPD type: unspecified COPD Qualified Code(s): J44.9 - Chronic obstructive pulmonary disease, unspecified (4) Obstructive sleep apnea Current Visit: No Status: Chronic (5) CAD (coronary artery disease) Current Visit: Yes Status: Acute Assessment and plan: H/o LAD stent in 2005. Continue asa, plavix, atatin, and bb. Agressive risk factor modification. Qualifiers: Coronary Disease-Associated Artery/Lesion type: [place] artery [place] vs. transplanted heart: [place] heart Associated angina: with unstable angina Qualified Code(s): I25.110 - Atherosclerotic heart disease of [place] coronary artery with unstable angina pectoris (6) Liver cirrhosis Current Visit: No Status: Chronic Qualifiers: Hepatic cirrhosis type: unspecified hepatic cirrhosis Ascites presence: without ascites Qualified Code(s): K74.60 - Unspecified cirrhosis of liver (7) Morbid obesity with BMI of 50.0-59.9, adult Current Visit: No Status: Chronic - Subjective Interval history: Patient seen at the bedside, denies any chest pain or shortness of breath. Admitted for an NSTEMI, status post [facility] today. cardio following. - Constitutional Vitals: Temp Pulse Resp BP Pulse Ox 97.5 F L 84 18 103/65 95 09/09/16 11:25 09/09/16 12:25 09/09/16 12:25 09/09/16 12:25 09/09/16 12:25 General appearance: Present: A&O X 3, no acute distress Exam: HEENT: Atraumatic, Normocephaly, Mucus Membranes Moist Neck: No JVD, Normal carotid pulses Cardiac: Reg Rate and Rhythm, Normal S1 and S2, No Murmur Lungs: Normal Breath Sounds, No Wheeze, Rales, Rhonchi, Neuro: Alert and responsive, No focal deficits noted Abdomen: Soft, Non-Tender Skin: No rashes noted on visualized skin Musculoskeletal: No Chest Wall Tenderness Extremities: No Clubbing, No Cyanosis, No Edema, Normal Pulses Internal Medicine: Result - Labs CBC & Chem 7: 09/09/16 01:09 09/09/16 01:09 Labs: Short CBC 09/08/16 09/09/16 Range/Units 18:53 01:09 WBC 5.8 5.7 (4.3-11.1) K/mcL Hgb 11.9 L 11.7 L (12.9-16.9) g/dL Hct 38.8 37.6 (37.5-50.1) % Plt Count 77 L 69 L (140-400) K/mcL Neutrophils # 4.0 (1.6-8.9) K/mcL BMP 09/09/16 01:09 Sodium 139 Potassium 3.4 L Chloride 107 Carbon Dioxide 25 BUN 12 Creatinine 0.75 Glucose 101 H Calcium 8.5 L Cardiac Enzymes 09/08/16 09/09/16 Range/Units 18:53 01:09 Troponin I 0.42 H* 0.45 H* (0-0.03) ng/mL Liver Function 09/09/16 Range/Units 01:09 Total Bilirubin 1.1 (0.2-1.2) mg/dL AST 22 (5-34) Units/L ALT 12 (0-55) Units/L Alkaline Phosphatase 52 (38-126) Units/L Albumin 3.3 L (3.5-5.0) g/dL - ABG Interpretation ABG results: PT/INR, D-dimer PT 12.7 Seconds (9.4-12.1) H 09/08/16 18:53 Consult Discharge Plan - Plan Referrals: Carl Boo MD [Primary Care Provider] - 09/17/16 1:15 pm () Stanley Costa CNP [Advanced Practice Nurse] - 09/18/16 9:30 am ([facility] )
--- NOTE | 2016-09-09 15:53 | ECHO - Doppler Report ---
Echocardiogram Name: Heber Malin Date of Study: 09/09/2016 Date: 1955 Ht: 65.0 in Medical Record#: [id number] Age: 61 Wt: 307.0 lb Gender: Male BSA: 2.37 Order #: [id number] Location: [facility] Room #: 2A24 Reading Physician: Heber Roe MD, [facility] Biological Chemist: Maria Del Carmen Sahu RDCS, RVT Ordering Physician: Martha Henry MD Primary Physician: Carl Boo MD Indications: NSTEMI Impressions: Normal LV systolic function, LVEF 60%. Mild left ventricular diastolic dysfunction. Normal right ventricular size and function. Mildly dilated left atrium. Mild mitral regurgitation. No evidence of pulmonary hypertension. Left Ventricular Wall Motion: Rest Echo Findings All wall segments showed normal motion. Findings: Study Quality * Suboptimal echo windows. ECG Findings * Sinus rhythm with BBB. Left Ventricle * Normal LV systolic function, LVEF 60%. * Normal LV chamber size and wall thickness. * Mild left ventricular diastolic dysfunction. Right Ventricle * Normal right ventricular size and function. Left Atrium * Mildly dilated left atrium. Right Atrium * Normal right atrial size. Aorta * Normally sized aortic root. Pericardium * There is no pericardial effusion present. IVC * Normal IVC dimensions and inspiratory collapse. Aortic Valve * Aortic valve not well visualized. * No aortic stenosis. * No aortic regurgitation. Mitral Valve * Mildly calcified mitral valve leaflets and annulus. * No mitral stenosis. * Mild mitral regurgitation. Tricuspid Valve * Tricuspid valve not well visualized. * No tricuspid stenosis. * Trace tricuspid regurgitation. * No evidence of pulmonary hypertension. Pulmonic Valve * Pulmonic valve not well visualized. * No pulmonic stenosis. * No pulmonic regurgitation. History Hypertension Family History of CAD History of CAD/PTCA Myocardial Infarction 07/28/2012 a Previous Echo was performed. Measurements: BP: 103/ 65 2D Normal Values RVIDd: 3.20 cm IVSd: 1.00 cm 0.6 - 1.0 cm LVIDd: 5.50 cm 3.7 - 5.6 cm LVPWd: 1.00 cm 0.6 - 1.1 cm LVIDs: 3.40 cm 1.5 - 3.6 cm AO: 3.00 cm < 4.0 cm LA volume: 83 Mitral Valve Peak E:.86 m/sec Peak A:1.07 m/sec E/A Ratio:0.8 Tricuspid Valve TV Regurg Peak Grad: 13.00mmHg TV Regurg Peak Kehinde: 1.82m/sec Updated by Heber Roe MD, [facility] on 09/09/2016 3:46:40 PM electronically signed on 09/09/2016 3:47:05 PM with status of Final Wall Motion [place]: 1=Normal, 2=Hypokinesis, 3=Akinesis, 4=Dyskinesis, 5=Aneurysmal, 6=Hyperkinetic, X=Not Visualized (Blank)=Missing
--- NOTE | 2016-09-09 16:28 | Discharge Summary ---
Date of Encounter: 09/09/16 Time of Encounter: 16:26 - Discharge Diagnosis (1) NSTEMI (non-ST elevated myocardial infarction) Priority: Primary Status: Acute (2) Hypertension Priority: Secondary Status: Chronic Qualifiers: Hypertension type: essential hypertension Qualified Code(s): I10 - Essential (primary) hypertension (3) COPD (chronic obstructive pulmonary disease) Priority: Secondary Status: Chronic Qualifiers: COPD type: unspecified COPD Qualified Code(s): J44.9 - Chronic obstructive pulmonary disease, unspecified (4) Obstructive sleep apnea Priority: Secondary Status: Chronic (5) CAD (coronary artery disease) Priority: Secondary Status: Acute Qualifiers: Coronary Disease-Associated Artery/Lesion type: [place] artery [place] vs. transplanted heart: [place] heart Associated angina: with unstable angina Qualified Code(s): I25.110 - Atherosclerotic heart disease of [place] coronary artery with unstable angina pectoris (6) Liver cirrhosis Priority: Secondary Status: Chronic Qualifiers: Hepatic cirrhosis type: unspecified hepatic cirrhosis Ascites presence: without ascites Qualified Code(s): K74.60 - Unspecified cirrhosis of liver (7) Morbid obesity with BMI of 50.0-59.9, adult Priority: Secondary Status: Chronic - Discharge Medications Prescriptions: Isosorbide MONOnitrate (24 HR) [Imdur] 60 mg PO DAILY #30 tab.er.24h Home Medications: Celecoxib [Celebrex] 200 mg PO DAILY 10/29/15 [History] Clopidogrel [Plavix] 75 mg PO DAILY 10/29/15 [History] Duloxetine [Cymbalta] 30 mg PO DAILY 10/29/15 [History] Furosemide [Lasix] 40 mg PO BID 10/29/15 [History] Isosorbide MONOnitrate (24 HR) [Imdur] 60 mg PO DAILY 10/29/15 [History] Metoprolol [Lopressor] 25 mg PO BID 10/29/15 [History] Montelukast [Singulair] 10 mg PO DAILY 10/29/15 [History] Pantoprazole Sodium 40 mg PO DAILY 10/29/15 [History] Potassium Chloride 20 meq PO DAILY 10/29/15 [History] Pravastatin Sodium [Pravachol] 20 mg PO DAILY 10/29/15 [History] Albuterol Neb [Proventil Neb] 2.5 mg IH Q6H PRN 10/31/15 [History] Albuterol Sulfate [Albuterol Inhaler] 2 puff IH Q4HR PRN 10/31/15 [History] Cyclobenzaprine [Flexeril] 10 mg PO TID 10/31/15 [History] Fluticasone Propionate Nasal [Flonase] 2 spr NS DAILY 10/31/15 [History] Gabapentin [Neurontin] 900 mg PO BID 10/31/15 [History] Spironolactone [Aldactone] 100 mg PO BID 01/28/16 [History] BuPROPion XL (24 HR) [Wellbutrin Xl] 150 mg PO DAILY 09/08/16 [History] Meloxicam 7.5 mg PO DAILY 09/08/16 [History] OxyCODONE Immed Rel [Roxicodone 5 MG] 5 mg PO BID PRN 09/08/16 [History] Rifaximin [Xifaxan] 550 mg PO BID 09/08/16 [History] Isosorbide MONOnitrate (24 HR) [Imdur] 60 mg PO DAILY #30 tab.er.24h 09/09/16 [ Rx] Allergies/Adverse Reactions: Allergies JUSTUS Inhibitors Adverse Reaction (Verified 09/08/16 10:54) Cough nalbuphine [From Nubain] Adverse Reaction (Verified 09/08/16 10:54) See Comments "ADVERSE REACTION IN ER GIVEN MEDS TO REVERSE" PATIENT UNABLE TO CLARIFY Date of admission: 09/08/16 15:24 Primary care physician: Carl Boo MD Consults: 09/09/16 07:52 Consult to Cardiac Rehabilitation-Phase1 [CONS] Routine Comment: Reason for Consult: NSTEMI Call Completed: Yes Discharging clinician: Kianna Cooper Anticipated date of discharge: 09/09/16 - Patient Status Disposition: Home, Self-Care Condition: Fair Functional capacity at discharge: independent ambulation Overall status at discharge: patient is back to baseline - Discharge Instructions Instructions: Isosorbide Mononitrate (By mouth), Coronary Artery Disease (DC), Chronic Obstructive Pulmonary Disease (DC), Chronic Hypertension (DC) Follow Up With: Carl Boo MD [Primary Care Provider] - 09/17/16 1:15 pm () Stanley Costa CNP [Advanced Practice Nurse] - 09/18/16 9:30 am ([facility] ) - Diet and Activity Activity: other (avoid exertion until next follow up with cardiology.) Diet: other (cardiac diet) Interval History: Mr. Malin is a 61 year old male with a history of PCI to his LAD in 2005, HTN, HLD , GERALDO, DVT, COPD, non alcoholic chirrosis, and morbid obesity who presents with intermittent chest pain over the past three days. Initial work-up reveals new LBBB and troponin 0.55. Heparin gtt per ACS protocal started. Cardiology was consulted and he underwent LHC .LHC showed minimal to mild CAD. Stent patent. LAD with sluggish flow. started imdur along with asa, BB , statin , currently chest pain free. ECHO showed normal LVEF. Close out-pt f/u. Will schedule in cardiology office in one week. He is being discharged in stable condition. Hospital course: Mr. Malin is a 61 year old male Time spent discussing smoking cessation with patient: more than 10 minutes - Time Spent with Patient Total time spent providing and/or coordinating discharge services: Greater than 30 minutes - Constitutional Vitals: Temp Pulse Resp BP Pulse Ox 98.4 F 68 18 117/66 95 09/09/16 15:45 09/09/16 15:45 09/09/16 15:45 09/09/16 15:45 09/09/16 15:45 General appearance: Present: A&O X 3, no acute distress Exam: HEENT: Atraumatic, Normocephaly, Mucus Membranes Moist Neck: No JVD, Normal carotid pulses Cardiac: Reg Rate and Rhythm, Normal S1 and S2, No Murmur Lungs: Normal Breath Sounds, No Wheeze, Rales, Rhonchi, Neuro: Alert and responsive, No focal deficits noted Abdomen: Soft, Non-Tender Skin: No rashes noted on visualized skin Musculoskeletal: No Chest Wall Tenderness Extremities: No Clubbing, No Cyanosis, No Edema, Normal Pulses
--- NOTE | 2016-09-09 19:13 | Electrocardiograph Report ---
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
--- NOTE | 2016-09-10 11:43 | Invasive Diagnostic Lab ---
Name: Heber Malin Date of Study: 09/09/2016 Date: 1955 Ht: 165.0 cm /65.0 in Medical Record#: [id number] Age: 61 Wt: 139. kg / 306.44 lb Account/Order#: [id number] Gender: Male BSA: 2.37 Order #: [id number] Fluoro Dose: 346 mGy BMI: 51.06 Procedure Physician: Raheem Hamlin MD, FACC Referring MD: Referring MD: Procedures Performed: LEFT HEART CATH Indications: Non-Stemi Impressions: Mild coronary artery disease. The left ventricle is normal and has normal contractility EF 55% CIPRIANO 2 flow likely representing endothelial dysfunction or microvascular disease Recommendations: Optimal medical therapy of patient's disease. Aggressive risk factor modification. Trial of long acting nitrate History/Risk Factors: dvt gerd Diabetes Hypertension Dyslipidemia Current/Recent Smoker Chronic Lung Disease Previous PCI Procedure Access obtained in the right Radial artery by percutaneous puncture Complications: None Contrast: Isovue 71ml Closure Device: Mechanical Compression Hemodynamics: Pressures Site Systolic/ A Wave Diastolic/ V Wave End Diastolic/ Mean HR AO 155 105 127 96 AO 152 124 137 88 AO 113 101 107 99 LV 164 27 33 87 LV 121 23 28 87 LV 169 27 81 91 AO 139 91 110 87 LV Ventriculography Ejection Method: LV Gram Ejection Fraction: 55% Wall Motion: HANNAH Anterobasal Normal Anterolateral Normal Apical: Normal Inferoapical Normal Inferobasal Normal Coronary Dominance: Co-dominant Lesion Findings/Interventions * Left Main Coronary Artery The LMCA is angiographically free of disease. * Left Anterior Descending There is a 20% stenosis in the Proximal LAD. The lesion has a CIPRIANO flow of 2. There is a 15% stenosis in the Mid LAD. The lesion has a CIPRIANO flow of 2. * Circumflex There is a 20% stenosis in the 1st Marginal. There is a 20% stenosis in the 2nd Marginal. There is a 15% stenosis in the Left PDA. CIPRIANO 2 flow * Right Coronary Artery The Right PDA is small in size and diffuse disease noted. There is a 30% stenosis in the Mid RCA. Updated by [facility], RT (R) on 09/09/2016 10:20:01 AM Raheem Hamlin MD, FACC electronically signed on 09/10/2016 11:40:01 AM with status of Final
== END 2016-09-09 17:50 | disposition home or self-care (01) | DRG 281 ==
LOC: 2NENU 10:50 → EMEROO 10:50 → 2ANU 14:11
PROVIDERS: ADMIT Internal Medicine; ATTEND Internal Medicine

== ENCOUNTER 2017-11-12 05:42 | Observation (INO) ==
[2017-11-12] MEDS ORDERED: 0.9 % Sodium Chloride 1,000 ML IVC ONE (06:11)
[2017-11-12] MEDS ORDERED: GI Cocktail 40 ML EACH PO ONE (06:11)
--- NOTE | 2017-11-12 06:20 | Emergency Department Note ---
Disposition Clinical Impression: Liver cirrhosis, Abdominal pain Disposition: Still a Patient Condition: Good Referrals: Carl Boo MD [Primary Care Provider] - Forms: ED Satisfaction Letter Abdominal Pain HPI - General Chief Complaint: ED Shortness of Breath/Dyspnea Stated Complaint: karri hx of copd abdominal,chest pain Time Seen by Provider: 11/12/17 05:49 Source: patient Mode of arrival: ambulatory Limitations: no limitations Nursing Notes Reviewed: Yes Vital Signs Reviewed: Yes - History of Present Illness HPI Narrative: Patient presents to the ED with the chief complaint of abdominal pain. Patient states that he started having abdominal pain yesterday morning and it has progressively gotten worse. located in a bandlike distribution in his epigastrium, left upper quadrant and right upper quadrant. States is very sharp and stabbing, intermittent, but never fully going away. Associated with nausea and dry heaving. No chest pain or shortness of breath. No fever or chills. Has had multiple abdominal surgeries including cholecystectomy and bowel resections and lysis of adhesions. States he does not feel obstructed but that his abdomen is much more distended than usual. He said no melena, hematochezia, or hematemesis. No dysuria, hematuria. Also has a history of stage IV nonalcoholic liver cirrhosis Pain Scale: 5 - Related Data Home Medications Medication Instructions Recorded Confirmed Celecoxib [Celebrex] 200 mg PO DAILY 10/29/15 09/08/16 Clopidogrel [Plavix] 75 mg PO DAILY 10/29/15 09/08/16 DULoxetine [Cymbalta] 30 mg PO DAILY 10/29/15 09/08/16 Furosemide [Lasix] 40 mg PO BID 10/29/15 09/08/16 Isosorbide MONOnitrate (24 HR) 60 mg PO DAILY 10/29/15 09/08/16 [Imdur] Metoprolol [Lopressor] 25 mg PO BID 10/29/15 09/08/16 Montelukast [Singulair] 10 mg PO DAILY 10/29/15 09/08/16 Pantoprazole Sodium 40 mg PO DAILY 10/29/15 09/08/16 Potassium Chloride 20 meq PO DAILY 10/29/15 09/08/16 Pravastatin Sodium [Pravachol] 20 mg PO DAILY 10/29/15 09/08/16 Albuterol Neb [Proventil Neb] 2.5 mg IH Q6H PRN 10/31/15 09/08/16 Albuterol Sulfate [Albuterol 2 puff IH Q4HR PRN 10/31/15 09/08/16 Inhaler] Cyclobenzaprine [Flexeril] 10 mg PO TID 10/31/15 09/08/16 Fluticasone Propionate Nasal 2 spr NS DAILY 10/31/15 09/08/16 [Flonase] Gabapentin [Neurontin] 900 mg PO BID 10/31/15 09/08/16 Spironolactone [Aldactone] 100 mg PO BID 01/28/16 09/08/16 BuPROPion XL (24 HR) [Wellbutrin 150 mg PO DAILY 09/08/16 09/08/16 Xl] Meloxicam 7.5 mg PO DAILY 09/08/16 09/08/16 OxyCODONE Immed Rel [Roxicodone 5 5 mg PO BID PRN 09/08/16 09/08/16 MG] Rifaximin [Xifaxan] 550 mg PO BID 09/08/16 09/08/16 Previous Rx's Medication Instructions Recorded Isosorbide MONOnitrate (24 HR) 60 mg PO DAILY #30 tab.er.24h 09/09/16 [Imdur] Docusate [Colace] 100 mg PO BID #60 capsule 06/16/17 Allergies Allergy/AdvReac Type Severity Reaction Status Date / Time JUSTUS Inhibitors AdvReac Cough Verified 09/08/16 10:54 nalbuphine [From Nubain] AdvReac See Verified 09/08/16 10:54 Comments Review of Systems: As reviewed in the HPI. All other systems reviewed are negative or normal. Abdominal Pain PMH - Past Medical History Medical history: Reports: asthma, cirrhosis, COPD, hypertension, liver disease, myocardial infarction, other Male Surgical History: Reports: other Psychiatric history: Reports: no psych history - Social History Smoking status: Former smoker Alcohol use: Reports: none Drug use: Reports: none Physical Exam - General Limitations: no limitations General appearance: alert, in no apparent distress Course Course Narrative: Patient presents to the ED with abdominal pain. We will get labs. We will get a CT with IV contrast of the abdomen. Once those are back. - Reevaluation(s) Reevaluation #1: Patient will be signed out to the oncoming daytime team with Dr. Larry and Jean Marie Vital Signs Temperature 98.4 F 11/12/17 05:57 Pulse Rate 88 11/12/17 05:57 Respiratory Rate 18 11/12/17 05:57 Blood Pressure 141/89 11/12/17 05:57 O2 Sat by Pulse Oximetry 94 11/12/17 05:57 Temperature 98.4 F 11/12/17 05:57 Pulse Rate 88 11/12/17 05:57 Respiratory Rate 18 11/12/17 05:57 Blood Pressure 141/89 11/12/17 05:57 O2 Sat by Pulse Oximetry 94 11/12/17 05:57 Oxygen Delivery Oxygen Delivery Room Air Abdominal Pain - Medical Records Medical records reviewed: Yes I reviewed the patient's medical records. - Lab Data Lab results reviewed: Yes I reviewed the patient's lab results. Result diagrams: 11/12/17 05:58 Lab Results 11/12/17 Range/Units 05:58 WBC 14.7 H (4.3-11.1) K/mcL RBC 5.57 H (4.19-5.50) M/mcL Hgb 13.6 (12.9-16.9) g/dL Hct 43.4 (37.5-50.1) % MCV 77.9 L (83.0-100.0) fL MCH 24.4 L (28.0-33.3) pg MCHC 31.3 L (31.6-35.5) g/dL RDW 16.3 H (11.5-14.5) % Plt Count 121 L (140-400) K/mcL MPV 12.2 (9.4-12.4) fL Immature Gran % 0.7 (0-4) % Seg Neutrophils % 79.5 % Lymphocytes % 10.2 % Monocytes % 7.4 % Eosinophils % 1.4 % Basophils % 0.8 % Neutrophils # 11.7 H (1.6-8.9) K/mcL Lymphocytes # 1.5 (0.6-4.6) K/mcL Monocytes # 1.1 (0.0-1.3) K/mcL Eosinophils # 0.2 (0.0-0.6) K/mcL Basophils # 0.1 (0.0-0.2) K/mcL - Radiology Data Radiology results reviewed: Yes I reviewed the patient's radiology results. - EKG Data EKG attestation: Yes I reviewed and interpreted this EKG. EKG results narrative: Sinus rhythm, rate 93, IL interval 199, QRS 156, QTC 428, left axis deviation, left bundle branch block that is similar in morphology to previous.
[2017-11-12 06:32] LABS: Basophils # 0.1 K/mcL (0.0-0.2); Basophils % 0.8 %; Eosinophils # 0.2 K/mcL (0.0-0.6); Eosinophils % 1.4 %; Hematocrit 43.4 % (37.5-50.1); Hemoglobin 13.6 g/dL (12.9-16.9); Immature Granulocytes % 0.7 % (0-4); Lymphocytes # 1.5 K/mcL (0.6-4.6); Lymphocytes % 10.2 %; Mean Corpuscular HGB Conc 31.3 g/dL (31.6-35.5); Mean Corpuscular Hemoglobin 24.4 pg (28.0-33.3); Mean Corpuscular Volume 77.9 fL (83.0-100.0); Mean Platelet Volume 12.2 fL (9.4-12.4); Monocytes # 1.1 K/mcL (0.0-1.3); Monocytes % 7.4 %; Neutrophils # 11.7 K/mcL (1.6-8.9); Platelet Count 121 K/mcL (140-400); Red Blood Count 5.57 M/mcL (4.19-5.50); Red Cell Distribution Width 16.3 % (11.5-14.5); Segmented Neutrophils % 79.5 %
[2017-11-12 06:39] LABS: INR 1.1; Prothrombin Time 11.7 Seconds (9.4-12.1)
[2017-11-12 06:42] LABS: Activated Partial Thrombo Time 32.1 Seconds (26.0-36.0)
[2017-11-12] MEDS ORDERED: Isovue-370 500 ML INFUS..BTL IV ONE (06:45)
[2017-11-12 06:52] LABS: Alanine Aminotransferase 13 Units/L (7-52); Albumin 4.4 g/dL (3.5-5.7); Albumin/Globulin Ratio 1.7 (1.1-2.2); Alkaline Phosphatase 54 Units/L (34-104); Aspartate Amino Transferase 20 Units/L (13-39); BUN/Creatinine Ratio 13 (6-26); Bilirubin,Direct 0.4 mg/dL (0.0-0.2); Bilirubin,Indirect 1.2 mg/dL (0.0-1.2); Bilirubin,Total 1.6 mg/dL (0.3-1.0); Blood Urea Nitrogen 16 mg/dL (8-23); Calcium 10.3 mg/dL (8.6-10.3); Carbon Dioxide 25 mEq/L (23-29); Chloride 102 mEq/L (98-107); Globulin 2.6 g/dL (2.4-3.5); Glucose 176 mg/dL (70-105); Lipase 60 Units/L (11-82); Osmolality,Calculated 291 (280-300); Potassium 4.1 mEq/L (3.5-5.1); Sodium 138 mEq/L (136-145); Troponin I < 0.03 ng/mL (< 0.04); eGFR For African Americans > 60 (> 60); eGFR For Non-African Americans > 60 (> 60)
[2017-11-12 06:54] LABS: Bilirubin,Urine Negative (Negative); Blood,Urine Negative (Negative); Clarity,Urine Clear (Clear); Color,Urine Dark Yellow (Yellow); Glucose,Urine (UA) Normal (Normal); Ketones,Urine Negative (Negative); Leukocyte Esterase,Urine Negative (Negative); Nitrite,Urine Negative (Negative); PH,Urine 5.5 pH Units (5.0-8.0); Protein,Urine Negative (Neg-Trace); Specific Gravity,Urine 1.022 (1.010-1.025); Urobilinogen,Urine Normal (Normal)
--- NOTE | 2017-11-12 06:55 | Emergency Department Note ---
Disposition Clinical Impression: Small bowel obstruction, Gastroenteritis Disposition: Admitted As Inpatient Condition: Good Time of Disposition: 13:07 Abdominal Pain HPI - General Chief Complaint: ED Shortness of Breath/Dyspnea Stated Complaint: karri hx of copd abdominal,chest pain Time Seen by Provider: 11/12/17 05:49 Source: patient Mode of arrival: ambulatory Limitations: no limitations Nursing Notes Reviewed: Yes Vital Signs Reviewed: Yes - History of Present Illness Pain Scale: 5 - Related Data Home Medications Medication Instructions Recorded Confirmed Celecoxib [Celebrex] 200 mg PO DAILY 10/29/15 09/08/16 Clopidogrel [Plavix] 75 mg PO DAILY 10/29/15 09/08/16 DULoxetine [Cymbalta] 30 mg PO DAILY 10/29/15 09/08/16 Furosemide [Lasix] 40 mg PO BID 10/29/15 09/08/16 Isosorbide MONOnitrate (24 HR) 60 mg PO DAILY 10/29/15 09/08/16 [Imdur] Metoprolol [Lopressor] 25 mg PO BID 10/29/15 09/08/16 Montelukast [Singulair] 10 mg PO DAILY 10/29/15 09/08/16 Pantoprazole Sodium 40 mg PO DAILY 10/29/15 09/08/16 Potassium Chloride 20 meq PO DAILY 10/29/15 09/08/16 Pravastatin Sodium [Pravachol] 20 mg PO DAILY 10/29/15 09/08/16 Albuterol Neb [Proventil Neb] 2.5 mg IH Q6H PRN 10/31/15 09/08/16 Albuterol Sulfate [Albuterol 2 puff IH Q4HR PRN 10/31/15 09/08/16 Inhaler] Cyclobenzaprine [Flexeril] 10 mg PO TID 10/31/15 09/08/16 Fluticasone Propionate Nasal 2 spr NS DAILY 10/31/15 09/08/16 [Flonase] Gabapentin [Neurontin] 900 mg PO BID 10/31/15 09/08/16 Spironolactone [Aldactone] 100 mg PO BID 01/28/16 09/08/16 BuPROPion XL (24 HR) [Wellbutrin 150 mg PO DAILY 09/08/16 09/08/16 Xl] Meloxicam 7.5 mg PO DAILY 09/08/16 09/08/16 OxyCODONE Immed Rel [Roxicodone 5 5 mg PO BID PRN 09/08/16 09/08/16 MG] Rifaximin [Xifaxan] 550 mg PO BID 09/08/16 09/08/16 Previous Rx's Medication Instructions Recorded Isosorbide MONOnitrate (24 HR) 60 mg PO DAILY #30 tab.er.24h 09/09/16 [Imdur] Docusate [Colace] 100 mg PO BID #60 capsule 06/16/17 Allergies Allergy/AdvReac Type Severity Reaction Status Date / Time JUSTUS Inhibitors AdvReac Cough Verified 09/08/16 10:54 nalbuphine [From Nubain] AdvReac See Verified 09/08/16 10:54 Comments Abdominal Pain PMH - Past Medical History Medical history: Reports: asthma, cirrhosis, COPD, hypertension, liver disease, myocardial infarction, other Male Surgical History: Reports: other Psychiatric history: Reports: no psych history - Social History Smoking status: Former smoker Alcohol use: Reports: none Drug use: Reports: none Physical Exam - General Limitations: no limitations General appearance: alert, in no apparent distress - Head Head exam: atraumatic, normocephalic, normal inspection - Eye Eye exam: Present: normal appearance, PERRL, EOMI - ENT ENT exam: normal exam, normal oropharynx, mucous membranes moist - Neck Neck exam: Present: normal inspection, full ROM, trachea midline - Chest Chest inspection: Present: normal inspection, symmetric chest wall rise - Respiratory Respiratory exam: Present: normal lung sounds bilaterally - Cardiovascular Cardiovascular exam: Present: regular rate, normal rhythm, normal heart sounds - Abdominal Exam Abdominal exam: Present: soft, tenderness (epigastric tenderness, moderate). Absent: distention, guarding, rebound, rigidity - Extremities Exam Extremities exam: Present: normal inspection, full ROM. Absent: tenderness, pedal edema - Neurological Exam Neurological exam: Present: alert, oriented X3 - Psychiatric Psychiatric exam: Present: normal affect, normal mood - Skin Skin exam: Present: warm, dry, intact, normal color Course Course Narrative: Patient was a sign out from previous team, Dr. Kelley and Dr. Lopez. Please see their notes for any additional detail. In summary,Patient is a 62-year-old male with past medical history of previous bowel resection surgery. He also has hypertension. He presents today due to epigastric pain that radiates around to left upper quadrant and right upper quadrant around to the back in a band like fashion. He has also had nausea and heaving. This has been occurring since yesterday. Denies any episodes like this in the past. Denies any other fevers, blood in vomit or stool, chest pain, shortness of breath, dysuria, hematuria. He admits to chronic diarrhea. Basic labs show no major abnormality except for elevated white blood cell count. CT scan shows partial small bowel obstruction, portal hypertension. We will consult surgery and then admit the patient to hospitalist for further care. 08:[address] Felton. He requested that we obtain CT scan with oral contrast for further assessment before admission. This has been ordered. Patient was given fentanyl for further pain control. 12:[address] with oral contrast showed gastroenteritis versus small bowel traction. He is still having intractable abdominal pain. Patient was accepted for admission by Dr. cross, I talked with Amber Landeros with surgery service to give them an update on the CT scan. They did not have any further recommendations at this time. Consult was placed. Abdomen/Pelvis CT 11/12/17 10:30 IMPRESSION: 1. Oral contrast has reached the colon. Mild intestinal dilatation with fluid throughout the remnant colon and rectum is more consistent with gastroenteritis van bowel obstruction. Clinical correlation warranted 2. Cirrhosis with splenomegaly 3. Left adrenal adenoma 4. Status post cholecystectomy and right hemicolectomy D/ / Cuate Gutiérrez MD / Cuate Gutiérrez MD Interpreting Provider: Cuate Gutiérrez MD Abdomen/Pelvis CT 11/12/17 06:45 IMPRESSION: Mildly dilated gas and fluid-filled proximal small bowel loops with decompressed distal loops consistent with a partial small bowel obstruction. Cirrhosis with portal hypertension. Lumbar spondylosis D/ / Javier Hubbard MD / Javier Hubbard MD Interpreting Provider: Javier Hubbard MD Vital Signs Temperature 98.4 F 11/12/17 05:57 Pulse Rate 88 11/12/17 05:57 Respiratory Rate 18 11/12/17 05:57 Blood Pressure 141/89 11/12/17 05:57 O2 Sat by Pulse Oximetry 94 11/12/17 05:57 Temperature 98.4 F 11/12/17 05:57 Pulse Rate 81 11/12/17 12:35 Respiratory Rate 18 11/12/17 12:35 Blood Pressure 136/77 11/12/17 12:35 O2 Sat by Pulse Oximetry 95 11/12/17 12:35 Oxygen Delivery Oxygen Delivery Room Air Abdominal Pain - MDM Narrative Medical decision making narrative: Patient was a sign out from previous team, Dr. Kelley and Dr. Lopez. Please see their notes for any additional detail. In summary,Patient is a 62-year-old male with past medical history of previous bowel resection surgery. He also has hypertension. He presents today due to epigastric pain that radiates around to left upper quadrant and right upper quadrant around to the back in a band like fashion. He has also had nausea and heaving. This has been occurring since yesterday. Denies any episodes like this in the past. Denies any other fevers, blood in vomit or stool, chest pain, shortness of breath, dysuria, hematuria. He admits to chronic diarrhea. Basic labs show no major abnormality except for elevated white blood cell count. CT scan shows partial small bowel obstruction, portal hypertension. We will consult surgery and then admit the patient to hospitalist for further care. 08:[address] Felton. He requested that we obtain CT scan with oral contrast for further assessment before admission. This has been ordered. Patient was given fentanyl for further pain control. 12:[address] with oral contrast showed gastroenteritis versus small bowel traction. He is still having intractable abdominal pain. Patient was accepted for admission by Dr. cross, I talked with Amber Landeros with surgery service to give them an update on the CT scan. They did not have any further recommendations at this time. Consult was placed. - Medical Records Medical records reviewed: Yes I reviewed the patient's medical records. - Lab Data Lab results reviewed: Yes I reviewed the patient's lab results. Result diagrams: 11/12/17 05:58 11/12/17 05:58 Lab Results 11/12/17 11/12/17 11/12/17 Range/Units 05:58 05:58 05:58 WBC 14.7 H (4.3-11.1) K/mcL RBC 5.57 H (4.19-5.50) M/mcL Hgb 13.6 (12.9-16.9) g/dL Hct 43.4 (37.5-50.1) % MCV 77.9 L (83.0-100.0) fL MCH 24.4 L (28.0-33.3) pg MCHC 31.3 L (31.6-35.5) g/dL RDW 16.3 H (11.5-14.5) % Plt Count 121 L (140-400) K/mcL MPV 12.2 (9.4-12.4) fL Immature Gran % 0.7 (0-4) % Seg Neutrophils % 79.5 % Lymphocytes % 10.2 % Monocytes % 7.4 % Eosinophils % 1.4 % Basophils % 0.8 % Neutrophils # 11.7 H (1.6-8.9) K/mcL Lymphocytes # 1.5 (0.6-4.6) K/mcL Monocytes # 1.1 (0.0-1.3) K/mcL Eosinophils # 0.2 (0.0-0.6) K/mcL Basophils # 0.1 (0.0-0.2) K/mcL PT 11.7 (9.4-12.1) Seconds INR 1.1 APTT 32.1 (26.0-36.0) Seconds Sodium 138 (136-145) mEq/L Potassium 4.1 (3.5-5.1) mEq/L Chloride 102 (98-107) mEq/L Carbon Dioxide 25 (23-29) mEq/L BUN 16 (8-23) mg/dL Creatinine 1.20 (0.70-1.30) mg/dL Est GFR ( Amer) > 60 (> 60) Est GFR (Non-Af Amer) > 60 (> 60) BUN/Creatinine Ratio 13 (6-26) Glucose 176 H (70-105) mg/dL Calculated Osmolality 291 (280-300) Lactic Acid (0.5-2.2) mmol/L Calcium 10.3 (8.6-10.3) mg/dL Total Bilirubin 1.6 H (0.3-1.0) mg/dL Direct Bilirubin 0.4 H (0.0-0.2) mg/dL Indirect Bilirubin 1.2 (0.0-1.2) mg/dL AST 20 (13-39) Units/L ALT 13 (7-52) Units/L Alkaline Phosphatase 54 (34-104) Units/L Troponin I < 0.03 (< 0.04) ng/mL Serum Total Protein 7.0 (6.4-8.9) g/dL Albumin 4.4 (3.5-5.7) g/dL Globulin 2.6 (2.4-3.5) g/dL Albumin/Globulin Ratio 1.7 (1.1-2.2) Lipase 60 (11-82) Units/L Urine Color (Yellow) Urine Clarity (Clear) Urine pH (5.0-8.0) pH Units Ur Specific [place] (1.010-1.025) Urine Protein (Neg-Trace) mg/dL Urine Glucose (UA) (Normal) mg/dL Urine Ketones (Negative) mg/dL Urine Blood (Negative) Urine Nitrite (Negative) Urine Bilirubin (Negative) Urine Urobilinogen (Normal) mg/dL Ur Leukocyte Esterase (Negative) Ur Culture Indicated? (NO) 11/12/17 11/12/17 Range/Units 06:28 06:52 WBC (4.3-11.1) K/mcL RBC (4.19-5.50) M/mcL Hgb (12.9-16.9) g/dL Hct (37.5-50.1) % MCV (83.0-100.0) fL MCH (28.0-33.3) pg MCHC (31.6-35.5) g/dL RDW (11.5-14.5) % Plt Count (140-400) K/mcL MPV (9.4-12.4) fL Immature Gran % (0-4) % Seg Neutrophils % % Lymphocytes % % Monocytes % % Eosinophils % % Basophils % % Neutrophils # (1.6-8.9) K/mcL Lymphocytes # (0.6-4.6) K/mcL Monocytes # (0.0-1.3) K/mcL Eosinophils # (0.0-0.6) K/mcL Basophils # (0.0-0.2) K/mcL PT (9.4-12.1) Seconds INR APTT (26.0-36.0) Seconds Sodium (136-145) mEq/L Potassium (3.5-5.1) mEq/L Chloride (98-107) mEq/L Carbon Dioxide (23-29) mEq/L BUN (8-23) mg/dL Creatinine (0.70-1.30) mg/dL Est GFR ( Amer) (> 60) Est GFR (Non-Af Amer) (> 60) BUN/Creatinine Ratio (6-26) Glucose (70-105) mg/dL Calculated Osmolality (280-300) Lactic Acid 1.6 (0.5-2.2) mmol/L Calcium (8.6-10.3) mg/dL Total Bilirubin (0.3-1.0) mg/dL Direct Bilirubin (0.0-0.2) mg/dL Indirect Bilirubin (0.0-1.2) mg/dL AST (13-39) Units/L ALT (7-52) Units/L Alkaline Phosphatase (34-104) Units/L Troponin I (< 0.04) ng/mL Serum Total Protein (6.4-8.9) g/dL Albumin (3.5-5.7) g/dL Globulin (2.4-3.5) g/dL Albumin/Globulin Ratio (1.1-2.2) Lipase (11-82) Units/L Urine Color Dark Yellow (Yellow) Urine Clarity Clear (Clear) Urine pH 5.5 (5.0-8.0) pH Units Ur Specific [place] 1.022 (1.010-1.025) Urine Protein Negative (Neg-Trace) mg/dL Urine Glucose (UA) Normal (Normal) mg/dL Urine Ketones Negative (Negative) mg/dL Urine Blood Negative (Negative) Urine Nitrite Negative (Negative) Urine Bilirubin Negative (Negative) Urine Urobilinogen Normal (Normal) mg/dL Ur Leukocyte Esterase Negative (Negative) Ur Culture Indicated? NO (NO) - Radiology Data Radiology results reviewed: Yes I reviewed the patient's radiology results. Abdomen/Pelvis CT 11/12/17 10:30 IMPRESSION: 1. Oral contrast has reached the colon. Mild intestinal dilatation with fluid throughout the remnant colon and rectum is more consistent with gastroenteritis van bowel obstruction. Clinical correlation warranted 2. Cirrhosis with splenomegaly 3. Left adrenal adenoma 4. Status post cholecystectomy and right hemicolectomy D/ / Cuate Gutiérrez MD / Cuate Gutiérrez MD Interpreting Provider: Cuate Gutiérrez MD Joellen - Joellen Situation: Demographics, MOA Background: Presenting Complaint, Relevant PMH, Meds, & Allergies Assessment: Vital Signs, Course and respsone to treatment, Exam Concerns, Patient/Family Expectation, Pertinant Lab Results Recommendation: Barrier(s) to disposition, Recommendation based on pending studies, treatments, or consults Joellen Repor Time: 13:07
--- NOTE | 2017-11-12 07:01 | Emergency Department Note ---
START Narrative - START START: I examined this patient and my medical decision-making was reviewed with the Resident Physician. I agree with the documented findings, disposition and treatment plan as described except to the extent set forth below. 62-year-old male presents ED because of abdominal tightness and discomfort. Symptoms evolving since yesterday with a pressure and bandlike sensation around his upper abdomen. He has had bowel obstruction of acidosis has a similar feel. No vomiting. No dyspnea. No chest pain. He has had multiple bowel resections in the past with prior bowel obstructions. 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 Chest is clear bilaterally. Abdomen soft non-distended with diffuse tenderness across the upper abdomen. Bowel sounds are distant. Labs are pending, he will be treated symptomatically pending CT of the abdomen. Turned over to Dr. Clinton Larry.
[2017-11-12] MEDS ORDERED: *HR* FentaNYL (PF) 100 MCG/2 ML VIAL IVP ONE ×2 (08:22→10:41)
--- NOTE | 2017-11-12 08:36 | Emergency Department Note ---
Disposition Clinical Impression: Small bowel obstruction Disposition: Admitted As Inpatient Condition: Good Referrals: Carl Boo MD [Primary Care Provider] - Forms: ED Satisfaction Letter General Adult HPI - General Chief complaint: ED Shortness of Breath/Dyspnea Stated complaint: karri hx of copd abdominal,chest pain Time Seen by Provider: 11/12/17 05:49 Source: patient Mode of arrival: ambulatory Limitations: no limitations - History of Present Illness Pain Scale: 5 - Related Data Home Medications Medication Instructions Recorded Confirmed Celecoxib [Celebrex] 200 mg PO DAILY 10/29/15 09/08/16 Clopidogrel [Plavix] 75 mg PO DAILY 10/29/15 09/08/16 DULoxetine [Cymbalta] 30 mg PO DAILY 10/29/15 09/08/16 Furosemide [Lasix] 40 mg PO BID 10/29/15 09/08/16 Isosorbide MONOnitrate (24 HR) 60 mg PO DAILY 10/29/15 09/08/16 [Imdur] Metoprolol [Lopressor] 25 mg PO BID 10/29/15 09/08/16 Montelukast [Singulair] 10 mg PO DAILY 10/29/15 09/08/16 Pantoprazole Sodium 40 mg PO DAILY 10/29/15 09/08/16 Potassium Chloride 20 meq PO DAILY 10/29/15 09/08/16 Pravastatin Sodium [Pravachol] 20 mg PO DAILY 10/29/15 09/08/16 Albuterol Neb [Proventil Neb] 2.5 mg IH Q6H PRN 10/31/15 09/08/16 Albuterol Sulfate [Albuterol 2 puff IH Q4HR PRN 10/31/15 09/08/16 Inhaler] Cyclobenzaprine [Flexeril] 10 mg PO TID 10/31/15 09/08/16 Fluticasone Propionate Nasal 2 spr NS DAILY 10/31/15 09/08/16 [Flonase] Gabapentin [Neurontin] 900 mg PO BID 10/31/15 09/08/16 Spironolactone [Aldactone] 100 mg PO BID 01/28/16 09/08/16 BuPROPion XL (24 HR) [Wellbutrin 150 mg PO DAILY 09/08/16 09/08/16 Xl] Meloxicam 7.5 mg PO DAILY 09/08/16 09/08/16 OxyCODONE Immed Rel [Roxicodone 5 5 mg PO BID PRN 09/08/16 09/08/16 MG] Rifaximin [Xifaxan] 550 mg PO BID 09/08/16 09/08/16 Previous Rx's Medication Instructions Recorded Isosorbide MONOnitrate (24 HR) 60 mg PO DAILY #30 tab.er.24h 09/09/16 [Imdur] Docusate [Colace] 100 mg PO BID #60 capsule 06/16/17 Allergies Allergy/AdvReac Type Severity Reaction Status Date / Time JUSTUS Inhibitors AdvReac Cough Verified 09/08/16 10:54 nalbuphine [From Nubain] AdvReac See Verified 09/08/16 10:54 Comments Past Medical History - Past Medical History Medical history: Reports: asthma, cirrhosis, COPD, hypertension, liver disease, myocardial infarction, other Surgical history: Reports: cancer surgery, knee replacement, orthopedic, other, other Psychiatric history: Reports: no psych history - Social History Smoking Status: Former smoker Smokeless Tobacco Status: No Alcohol use: Reports: none Drug use: Reports: none Physical Exam - General Limitations: no limitations General appearance: alert, in no apparent distress Course Vital Signs Temperature 98.4 F 11/12/17 05:57 Pulse Rate 88 11/12/17 05:57 Respiratory Rate 18 11/12/17 05:57 Blood Pressure 141/89 11/12/17 05:57 O2 Sat by Pulse Oximetry 94 11/12/17 05:57 Temperature 98.4 F 11/12/17 05:57 Pulse Rate 85 11/12/17 08:27 Respiratory Rate 18 11/12/17 08:27 Blood Pressure 126/69 11/12/17 08:27 O2 Sat by Pulse Oximetry 94 11/12/17 08:27 Oxygen Delivery Oxygen Delivery Room Air Medical Decision Making - Lab Data Result diagrams: 11/12/17 05:58 11/12/17 05:58 Lab Results 11/12/17 11/12/17 11/12/17 Range/Units 05:58 05:58 05:58 WBC 14.7 H (4.3-11.1) K/mcL RBC 5.57 H (4.19-5.50) M/mcL Hgb 13.6 (12.9-16.9) g/dL Hct 43.4 (37.5-50.1) % MCV 77.9 L (83.0-100.0) fL MCH 24.4 L (28.0-33.3) pg MCHC 31.3 L (31.6-35.5) g/dL RDW 16.3 H (11.5-14.5) % Plt Count 121 L (140-400) K/mcL MPV 12.2 (9.4-12.4) fL Immature Gran % 0.7 (0-4) % Seg Neutrophils % 79.5 % Lymphocytes % 10.2 % Monocytes % 7.4 % Eosinophils % 1.4 % Basophils % 0.8 % Neutrophils # 11.7 H (1.6-8.9) K/mcL Lymphocytes # 1.5 (0.6-4.6) K/mcL Monocytes # 1.1 (0.0-1.3) K/mcL Eosinophils # 0.2 (0.0-0.6) K/mcL Basophils # 0.1 (0.0-0.2) K/mcL PT 11.7 (9.4-12.1) Seconds INR 1.1 APTT 32.1 (26.0-36.0) Seconds Sodium 138 (136-145) mEq/L Potassium 4.1 (3.5-5.1) mEq/L Chloride 102 (98-107) mEq/L Carbon Dioxide 25 (23-29) mEq/L BUN 16 (8-23) mg/dL Creatinine 1.20 (0.70-1.30) mg/dL Est GFR ( Amer) > 60 (> 60) Est GFR (Non-Af Amer) > 60 (> 60) BUN/Creatinine Ratio 13 (6-26) Glucose 176 H (70-105) mg/dL Calculated Osmolality 291 (280-300) Lactic Acid (0.5-2.2) mmol/L Calcium 10.3 (8.6-10.3) mg/dL Total Bilirubin 1.6 H (0.3-1.0) mg/dL Direct Bilirubin 0.4 H (0.0-0.2) mg/dL Indirect Bilirubin 1.2 (0.0-1.2) mg/dL AST 20 (13-39) Units/L ALT 13 (7-52) Units/L Alkaline Phosphatase 54 (34-104) Units/L Troponin I < 0.03 (< 0.04) ng/mL Serum Total Protein 7.0 (6.4-8.9) g/dL Albumin 4.4 (3.5-5.7) g/dL Globulin 2.6 (2.4-3.5) g/dL Albumin/Globulin Ratio 1.7 (1.1-2.2) Lipase 60 (11-82) Units/L Urine Color (Yellow) Urine Clarity (Clear) Urine pH (5.0-8.0) pH Units Ur Specific [place] (1.010-1.025) Urine Protein (Neg-Trace) mg/dL Urine Glucose (UA) (Normal) mg/dL Urine Ketones (Negative) mg/dL Urine Blood (Negative) Urine Nitrite (Negative) Urine Bilirubin (Negative) Urine Urobilinogen (Normal) mg/dL Ur Leukocyte Esterase (Negative) Ur Culture Indicated? (NO) 11/12/17 11/12/17 Range/Units 06:28 06:52 WBC (4.3-11.1) K/mcL RBC (4.19-5.50) M/mcL Hgb (12.9-16.9) g/dL Hct (37.5-50.1) % MCV (83.0-100.0) fL MCH (28.0-33.3) pg MCHC (31.6-35.5) g/dL RDW (11.5-14.5) % Plt Count (140-400) K/mcL MPV (9.4-12.4) fL Immature Gran % (0-4) % Seg Neutrophils % % Lymphocytes % % Monocytes % % Eosinophils % % Basophils % % Neutrophils # (1.6-8.9) K/mcL Lymphocytes # (0.6-4.6) K/mcL Monocytes # (0.0-1.3) K/mcL Eosinophils # (0.0-0.6) K/mcL Basophils # (0.0-0.2) K/mcL PT (9.4-12.1) Seconds INR APTT (26.0-36.0) Seconds Sodium (136-145) mEq/L Potassium (3.5-5.1) mEq/L Chloride (98-107) mEq/L Carbon Dioxide (23-29) mEq/L BUN (8-23) mg/dL Creatinine (0.70-1.30) mg/dL Est GFR ( Amer) (> 60) Est GFR (Non-Af Amer) (> 60) BUN/Creatinine Ratio (6-26) Glucose (70-105) mg/dL Calculated Osmolality (280-300) Lactic Acid 1.6 (0.5-2.2) mmol/L Calcium (8.6-10.3) mg/dL Total Bilirubin (0.3-1.0) mg/dL Direct Bilirubin (0.0-0.2) mg/dL Indirect Bilirubin (0.0-1.2) mg/dL AST (13-39) Units/L ALT (7-52) Units/L Alkaline Phosphatase (34-104) Units/L Troponin I (< 0.04) ng/mL Serum Total Protein (6.4-8.9) g/dL Albumin (3.5-5.7) g/dL Globulin (2.4-3.5) g/dL Albumin/Globulin Ratio (1.1-2.2) Lipase (11-82) Units/L Urine Color Dark Yellow (Yellow) Urine Clarity Clear (Clear) Urine pH 5.5 (5.0-8.0) pH Units Ur Specific [place] 1.022 (1.010-1.025) Urine Protein Negative (Neg-Trace) mg/dL Urine Glucose (UA) Normal (Normal) mg/dL Urine Ketones Negative (Negative) mg/dL Urine Blood Negative (Negative) Urine Nitrite Negative (Negative) Urine Bilirubin Negative (Negative) Urine Urobilinogen Normal (Normal) mg/dL Ur Leukocyte Esterase Negative (Negative) Ur Culture Indicated? NO (NO) Attestation Statement - Attestation Attestation: I examined this patient and my medical decision-making was reviewed with the Resident Physician. I agree with the documented findings, disposition and treatment plan as described except to the extent set forth below. 62 year old male presents to the eD with complaints of abdominal pain and bloating and states tthat he has a history of SBO and has had multiple abdominal surgies secondary to bowel necrosis and SBOs. PAtient states that this feels simliar to those episodes in the past. CT scan confirms partial small bowel obsturction and speakig to the client insights consultant inder Felton he has requestd an oral contrast study to furhter evaluation the SBO. We will admit to medicine wit surgery consult
[2017-11-12] MEDS ORDERED: Ondansetron 4 MG/2 ML VIAL IVP ONE (10:33)
[2017-11-12] MEDS ORDERED: Naloxone 0.4 MG/ML INJ IVP PRN (13:05)
--- NOTE | 2017-11-12 13:17 | Internal Med History&Physical ---
<Shima Chong Sharmin - Last Filed: 11/12/17 20:28> Date of Encounter: 11/12/17 Time of Encounter: 13:14 Internal Medicine - H&P: HPI Chief complaint: abdominal Pain Admitted From: Home Plans for Post Hospital Care: Home History of present illness: Mr. Malin is a 62 year old male with history of stage III nonalcoholic liver cirrhosis, shortness of breath, COPD, "mild" heart attack 2016, and hypertension. Patient indicated he also has a heart stent. Today he presents with abdominal pain that began yesterday morning. He indicated that he typically has diarrhea at home but yesterday he was constipated. He describes pain as sharp, in the epigastric area, right upper quadrant that radiates to right flank area. ED discovered patient had mild dilated gas and fluid-filled small bowel loops with decompressed distal loops consistent with a small bowel obstruction. Surgery was consulted in the ED and a second CT was completed with contrast ,which suggested gastroenteritis instead. Patient will remain nothing by mouth and we will start IV fluids. He has a history of obstructive sleep apnea and will supply oxygen when necessary. Surgery will not follow the patient at this time, please call if needed. Past Med Surg Social Fam HX - Past Medical History Medical history: asthma, cirrhosis, COPD, hypertension, liver disease, myocardial infarction, other Additional medical history: eye disease-false right eye, sleep apnea, lung nodule, small bowel obstruction, skin CA,DVT,. actinic keratoses Psychiatric history: no psych history - Past Surgical History Surgical History: cancer surgery, knee replacement, orthopedic, other, other Additional surgical history: skin CA, small bowel resection, hemorrhoidectomy, neck mass incision, carpal tunnel, exophageal dilation, left knee replacement - Social History Smoking Status: Former smoker Smokeless Tobacco Status: No Alcohol use: none Drug use: none - Family History Mother Living Status: Still Living Hx Family Cancer: Yes (reproductive cancer) Father Living Status: Hx Family Cardiac Disorders: Yes Internal Medicine - H&P: Meds Clopidogrel [Plavix] 75 mg PO DAILY 10/29/15 [History] Furosemide [Lasix] 40 mg PO BID 10/29/15 [History] Metoprolol [Lopressor] 25 mg PO BID 10/29/15 [History] Montelukast [Singulair] 10 mg PO DAILY 10/29/15 [History] Pantoprazole Sodium 40 mg PO DAILY 10/29/15 [History] Pravastatin Sodium [Pravachol] 20 mg PO DAILY 10/29/15 [History] Albuterol Neb [Proventil Neb] 2.5 mg IH Q6H PRN 10/31/15 [History] Albuterol Sulfate [Albuterol Inhaler] 2 puff IH Q4HR PRN 10/31/15 [History] Fluticasone Propionate Nasal [Flonase] 2 spr NS DAILY 10/31/15 [History] Gabapentin [Neurontin] 900 mg PO BID 10/31/15 [History] Spironolactone [Aldactone] 100 mg PO BID 01/28/16 [History] BuPROPion XL (24 HR) [Wellbutrin Xl] 150 mg PO DAILY 09/08/16 [History] Rifaximin [Xifaxan] 550 mg PO BID 09/08/16 [History] Azithromycin [Azithromycin] 250 mg PO MOWEFR 11/12/17 [History] Ferrous Sulfate 325 mg PO DAILY 11/12/17 [History] Isosorbide MONOnitrate (24 HR) [Imdur] 120 mg PO DAILY 11/12/17 [History] Potassium Chloride [Klor-Con 10] 10 meq PO DAILY 11/12/17 [History] Ranolazine [Ranexa] 500 mg PO BID 11/12/17 [History] Umeclidinium Baxter [Incruse Ellipta] 1 puff IH DAILY 11/12/17 [History] 3 Allergy/AdvReac Type Severity Reaction Status Date / Time JUSTUS Inhibitors AdvReac Cough Verified 11/12/17 14:00 [email or web address] [From Nubain] AdvReac See Verified 11/12/17 14:00 Comments All Systems PM: A 10-system review of systems was performed and is negative for pertinent findings except as documented above in the HPI. - Constitutional Constitutional: no chills, no fever(s), no night sweats - EENT Eyes: no change in vision, no discharge, no pain, no photophobia Ears: no ear discharge, no ear pain, no tinnitus Nose, mouth and throat: no dysphagia, no nasal discharge, no neck pain, no sore throat - Cardiovascular Cardiovascular ROS IM: no chest pain, no diaphoresis, no dyspnea, no lightheadedness, no palpitations, no syncope - Respiratory Respiratory: no cough, no dyspnea, no wheezing, no excessive phlegm production - Gastrointestinal Gastrointestinal: abdominal pain, bloating, constipation, diarrhea (Patient indicated that his diarrhea is more normal than his constipation), no hematemesis, no hematochezia, no melena, no nausea, no vomiting - Musculoskeletal Musculoskeletal ROS IM: no numbness, no tingling - Integumentary Integumentary IM: no rash, no unusual bruising - Neurological Neurological ROS: no confusion, no convulsions, no focal weakness, no numbness, no tingling, no tremor(s) - Hematologic/Lymphatic Hematologic/Lymphatic: no easy bruising - Constitutional Vitals: Temp Pulse Resp BP Pulse Ox 98.4 F 81 18 136/77 95 11/12/17 05:57 11/12/17 12:35 11/12/17 12:35 11/12/17 12:35 11/12/17 12:35 General appearance: Present: cooperative, A&O X 3 - Head Head exam: Present: atraumatic, normocephalic - Eye Eye exam: Present: PERRL, conjuntiva pink, sclera anicteric Pupils: Present: PERRL - Neck Neck exam general surgery: Present: supple, trachea midline. Absent: lymphadenopathy - Respiratory Respiratory exam: Present: decreased breath sounds, CTAB. Absent: accessory muscle use, rales, rhonchi, wheezes - Cardiovascular Cardiovascular exam: Present: RRR, +S1, +S2. Absent: diastolic murmur, gallop, rubs, systolic murmur - GI/Abdominal GI/Abdominal exam: Present: diminished bowel sounds, distended, soft, tenderness (Epigastric and RUQ that radiates to his right flank area ) - Extremities Exam Extremities exam: Present: warm, radial pulses palpable and symmetrical. Absent : calf tenderness, cyanotic, pedal edema - Neurological Exam Neurological exam: Present: CN II-XII intact, oriented X3, no focal deficits. Absent: pronater drift, facial droop, speech deficit - Skin Skin exam: Present: dry, intact Internal Med - H&P Results - Labs CBC & Chem 7: 11/12/17 05:58 11/12/17 05:58 - Assessment and plan (1) Gastroenteritis Current Visit: Yes Status: Acute Assessment and plan: The patient thought his current symptoms were either related to his cirrhosis or he had another SBO. Ct was negative for instruction, however he does likely have gastroenteritis. NPO IVF's Pain control with percocet po prn (2) Liver cirrhosis Current Visit: Yes Status: Chronic Assessment and plan: Patient should follow up with his specialist at [facility] Qualifiers: Hepatic cirrhosis type: unspecified hepatic cirrhosis Ascites presence: unspecified Qualified Code(s): K74.60 - Unspecified cirrhosis of liver (3) Hypertension Current Visit: No Status: Chronic Assessment and plan: Controlled at this time. Continue home medications Qualifiers: Hypertension type: essential hypertension Qualified Code(s): I10 - Essential (primary) hypertension (4) COPD (chronic obstructive pulmonary disease) Current Visit: No Status: Chronic Assessment and plan: Continue Home bronchodilators. Patient also has a history of GERALDO Oxygen prn to keep sats gt 92% Qualifiers: COPD type: unspecified COPD Qualified Code(s): J44.9 - Chronic obstructive pulmonary disease, unspecified (5) Obstructive sleep apnea Current Visit: No Status: Chronic Assessment and plan: Oxygen to keep sats gt 92% - Time Spent With Patient Total time spent is greater than 50% in coordination of care (as documented) at patient's floor/unit and/or counseling patient: <TaliDenys - Last Filed: 11/13/17 08:56> Date of Encounter: 11/12/17 Internal Medicine - H&P: HPI History of present illness: Mr. Malni is a 62 year old male All Systems PM: A 10-system review of systems was performed and is negative for pertinent findings except as documented above in the HPI. - Constitutional Vitals: Temp Pulse Resp BP Pulse Ox 97.9 F 68 17 126/74 95 11/13/17 06:31 11/13/17 06:31 11/13/17 06:31 18 06:31 11/13/17 06:31 Internal Med - H&P Results - Labs CBC & Chem 7: 11/13/17 05:11 11/13/17 05:11 Labs: Short CBC 11/13/17 Range/Units 05:11 WBC 6.2 D (4.3-11.1) K/mcL Hgb 11.6 L D (12.9-16.9) g/dL Hct 37.9 (37.5-50.1) % Plt Count 73 L (140-400) K/mcL Neutrophils # 4.4 (1.6-8.9) K/mcL BMP 11/13/17 05:11 Sodium 137 Potassium 3.8 Chloride 106 Carbon Dioxide 25 BUN 16 Creatinine 1.01 Glucose 102 Calcium 8.8 Liver Function 11/13/17 Range/Units 05:11 Total Bilirubin 1.2 H (0.3-1.0) mg/dL AST 17 (13-39) Units/L ALT 11 (7-52) Units/L Alkaline Phosphatase 47 (34-104) Units/L Albumin 3.7 (3.5-5.7) g/dL - Attending Attestation I have personally performed a face to face evaluation on this patient. I have reviewed and agree with the care plan provided by [employer]SP[employer] DRIVER Shima Chong. History and Exam by me shows: Mr. Malin is a 62 year old male with history of stage III nonalcoholic liver cirrhosis, COPD, who had multiple abdominal surgeries presented to ER with intractable N/V. pt states he is feeling better now. Denied any CP. Still has some mild abdominal discomfort Gen: A, A< O x 3 Abd:: Soft, NT, BS+ a/p 1. Acute GE 2. ?? Ileus NPO for now ok for ice chips and sips of water for today IV hydration - Time Spent With Patient Total time spent is greater than 50% in coordination of care (as documented) at patient's floor/unit and/or counseling patient:
[2017-11-12] MEDS: 0.9 % Sodium Chloride 1,000 ML IVC SCH ×2 (15:41→23:34)
[2017-11-12] MEDS: Azithromycin 250 MG TABLET PO SCH (15:42)
[2017-11-12] MEDS: *HR* OxyCODONE/APAP 7.5/325 TABLET PO PRN ×2 (15:45→22:56)
[2017-11-12] MEDS: Furosemide 40 MG TABLET PO SCH (17:48)
[2017-11-12] MEDS: Ranolazine 500 MG TAB.ER.12H PO SCH (21:50)
[2017-11-12] MEDS: Gabapentin 300 MG CAPSULE PO SCH (21:50)
[2017-11-13 05:36] LABS: Immature Granulocytes % 0.8 % (0-4); Lymphocytes % 16.5 %; Monocytes % 7.5 %
[2017-11-13 05:37] LABS: Basophils # 0.1 K/mcL (0.0-0.2); Eosinophils # 0.2 K/mcL (0.0-0.6); Eosinophils % 3.9 %; Hematocrit 37.9 % (37.5-50.1); Hemoglobin 11.6 g/dL (12.9-16.9); Mean Corpuscular HGB Conc 30.6 g/dL (31.6-35.5); Mean Corpuscular Hemoglobin 24.3 pg (28.0-33.3); Mean Corpuscular Volume 79.3 fL (83.0-100.0); Mean Platelet Volume 11.7 fL (9.4-12.4); Monocytes # 0.5 K/mcL (0.0-1.3); Red Blood Count 4.78 M/mcL (4.19-5.50); Red Cell Distribution Width 16.2 % (11.5-14.5); Segmented Neutrophils % 70.3 %
[2017-11-13 05:40] LABS: Neutrophils # 4.4 K/mcL (1.6-8.9); Platelet Count 73 K/mcL (140-400)
[2017-11-13 05:54] LABS: Alanine Aminotransferase 11 Units/L (7-52); Albumin 3.7 g/dL (3.5-5.7); Albumin/Globulin Ratio 1.8 (1.1-2.2); Alkaline Phosphatase 47 Units/L (34-104); Aspartate Amino Transferase 17 Units/L (13-39); BUN/Creatinine Ratio 16 (6-26); Bilirubin,Total 1.2 mg/dL (0.3-1.0); Blood Urea Nitrogen 16 mg/dL (8-23); Calcium 8.8 mg/dL (8.6-10.3); Carbon Dioxide 25 mEq/L (23-29); Chloride 106 mEq/L (98-107); Globulin 2.1 g/dL (2.4-3.5); Glucose 102 mg/dL (70-105); Osmolality,Calculated 285 (280-300); Potassium 3.8 mEq/L (3.5-5.1); Sodium 137 mEq/L (136-145); Total Protein 5.8 g/dL (6.4-8.9); eGFR For African Americans > 60 (> 60); eGFR For Non-African Americans > 60 (> 60)
[2017-11-13] MEDS: Fluticasone Propionate Nasal 50 MCG/SPRAY BOTTLE NS SCH (08:20)
[2017-11-13] MEDS: Furosemide 40 MG TABLET PO SCH ×2 (08:21→16:38)
[2017-11-13] MEDS: Gabapentin 300 MG CAPSULE PO SCH ×2 (08:22→20:49)
[2017-11-13] MEDS: Isosorbide MONOnitrate (24 HR) 60 MG TAB.ER.24H PO SCH (08:22)
[2017-11-13] MEDS: BuPROPion XL (24 HR) 150 MG TABLET PO SCH (08:23)
[2017-11-13] MEDS: Ranolazine 500 MG TAB.ER.12H PO SCH ×2 (08:23→20:50)
[2017-11-13] MEDS: Tiotropium 18 MCG inhalation IH SCH (11:00)
[2017-11-13] MEDS: *HR* OxyCODONE/APAP 7.5/325 TABLET PO PRN ×2 (11:48→16:38)
--- NOTE | 2017-11-13 15:04 | Internal Med Progress Note ---
Date of Encounter: 11/13/17 Time of Encounter: 11:30 - Assessment and plan (1) Gastroenteritis Current Visit: Yes Status: Acute Assessment and plan: Appears to be resolving. Continue supportive care. Monitor. Vitals remained stable. Patient is afebrile. Blood cell count is down to 6.2 from 14.7 on admission. No further nausea or vomiting. No diarrhea. Advance diet as tolerated. (2) Liver cirrhosis Current Visit: Yes Status: Chronic Assessment and plan: Stable. No acute decompensation Qualifiers: Hepatic cirrhosis type: unspecified hepatic cirrhosis Ascites presence: unspecified Qualified Code(s): K74.60 - Unspecified cirrhosis of liver (3) CAD (coronary artery disease) Current Visit: No Status: Acute Assessment and plan: Stable, no angina Tinea home medication Qualifiers: Coronary Disease-Associated Artery/Lesion type: red devil artery [place] vs. transplanted heart: red devil heart Associated angina: with unstable angina Qualified Code(s): I25.110 - Atherosclerotic heart disease of red devil coronary artery with unstable angina pectoris (4) COPD (chronic obstructive pulmonary disease) Current Visit: No Status: Chronic Assessment and plan: Stable, no evidence of acute exacerbation. Continue home medications. Qualifiers: COPD type: unspecified COPD Qualified Code(s): J44.9 - Chronic obstructive pulmonary disease, unspecified (5) Hypertension Current Visit: No Status: Chronic Assessment and plan: Blood Pressure controlled. Qualifiers: Hypertension type: essential hypertension Qualified Code(s): I10 - Essential (primary) hypertension (6) Morbid obesity with BMI of 50.0-59.9, adult Current Visit: No Status: Chronic (7) Obstructive sleep apnea Current Visit: No Status: Chronic Assessment and plan: On CPAP - Time Spent With Patient Total time spent is greater than 50% in coordination of care (as documented) at patient's floor/unit and/or counseling patient: 25 - 35 minutes - Subjective Interval history: Mr. Malin is a 62 year old male with history of stage III nonalcoholic liver cirrhosis, shortness of breath, COPD, "mild" heart attack 2016, and hypertension. Patient indicated he also has a heart stent. Today he presents with abdominal pain that began yesterday morning. He indicated that he typically has diarrhea at home but yesterday he was constipated. He describes pain as sharp, in the epigastric area, right upper quadrant that radiates to right flank area. ED discovered patient had mild dilated gas and fluid-filled small bowel loops with decompressed distal loops consistent with a small bowel obstruction. Surgery was consulted in the ED and a second CT was completed with contrast ,which suggested gastroenteritis instead. Patient will remain nothing by mouth and we will start IV fluids. He has a history of obstructive sleep apnea and will supply oxygen when necessary. Surgery will not follow the patient at this time, please call if needed. 11/13: Patient states he is feeling improved. Still having some mild epigastric discomfort. No further nausea or vomiting presently. He has not had any bowel movements today but states they frequently are loose. Chills. No chest pain or shortness of breath. - Constitutional Vitals: Temp Pulse Resp BP Pulse Ox 98.0 F 74 16 100/46 93 11/13/17 15:01 11/13/17 15:01 11/13/17 15:01 11/13/17 15:01 11/13/17 15:01 General appearance: Present: cooperative, A&O X 3, morbidly obese - Head Head exam: Present: atraumatic, normocephalic - Eye Eye exam: Present: PERRL, conjuntiva pink, sclera anicteric Pupils: Present: PERRL - Neck Neck exam general surgery: Present: supple, trachea midline. Absent: lymphadenopathy - Respiratory Respiratory exam: Present: decreased breath sounds. Absent: accessory muscle use, rales, rhonchi, wheezes - Cardiovascular Cardiovascular exam: Present: RRR, +S1, +S2. Absent: diastolic murmur, gallop, rubs, systolic murmur - GI/Abdominal GI/Abdominal exam: Present: distended, soft (Protuberant abdomen, mild epigastric TTP) - Extremities Exam Extremities exam: Present: pedal edema, warm, radial pulses palpable and symmetrical. Absent: calf tenderness, cyanotic - Neurological Exam Neurological exam: Present: CN II-XII intact, oriented X3, no focal deficits. Absent: pronater drift, facial droop, speech deficit - Skin Skin exam: Present: dry, intact Internal Medicine: Result - Labs CBC & Chem 7: 11/13/17 05:11 11/13/17 05:11 Labs: Short CBC 11/13/17 Range/Units 05:11 WBC 6.2 D (4.3-11.1) K/mcL Hgb 11.6 L D (12.9-16.9) g/dL Hct 37.9 (37.5-50.1) % Plt Count 73 L (140-400) K/mcL Neutrophils # 4.4 (1.6-8.9) K/mcL BMP 11/13/17 05:11 Sodium 137 Potassium 3.8 Chloride 106 Carbon Dioxide 25 BUN 16 Creatinine 1.01 Glucose 102 Calcium 8.8 Liver Function 11/13/17 Range/Units 05:11 Total Bilirubin 1.2 H (0.3-1.0) mg/dL AST 17 (13-39) Units/L ALT 11 (7-52) Units/L Alkaline Phosphatase 47 (34-104) Units/L Albumin 3.7 (3.5-5.7) g/dL - ABG Interpretation ABG results: PT/INR, D-dimer PT 11.7 Seconds (9.4-12.1) 11/12/17 05:58 - VTE Documentation of Mechanical Device: Venous foot pump, device Consult Discharge Plan - Plan Referrals: Carl Boo MD [Primary Care Provider] -
[2017-11-14 05:51] LABS: Hemoglobin 11.7 g/dL (12.9-16.9)
[2017-11-14 05:53] LABS: Basophils # 0.1 K/mcL (0.0-0.2); Basophils % 0.8 %; Eosinophils # 0.2 K/mcL (0.0-0.6); Eosinophils % 3.1 %; Hematocrit 37.7 % (37.5-50.1); Immature Granulocytes % 0.9 % (0-4); Immature Platelets 6.9 % (1.1-6.1); Lymphocytes # 1.1 K/mcL (0.6-4.6); Lymphocytes % 14.9 %; Mean Corpuscular Hemoglobin 24.7 pg (28.0-33.3); Mean Corpuscular Volume 79.5 fL (83.0-100.0); Mean Platelet Volume 11.6 fL (9.4-12.4); Monocytes # 0.6 K/mcL (0.0-1.3); Monocytes % 8.5 %; Neutrophils # 5.3 K/mcL (1.6-8.9); Red Blood Count 4.74 M/mcL (4.19-5.50); Red Cell Distribution Width 16.2 % (11.5-14.5); Segmented Neutrophils % 71.8 %
[2017-11-14 06:06] LABS: Alanine Aminotransferase 11 Units/L (7-52); Albumin 3.9 g/dL (3.5-5.7); Albumin/Globulin Ratio 1.8 (1.1-2.2); Alkaline Phosphatase 51 Units/L (34-104); Aspartate Amino Transferase 18 Units/L (13-39); BUN/Creatinine Ratio 15 (6-26); Bilirubin,Total 1.6 mg/dL (0.3-1.0); Blood Urea Nitrogen 17 mg/dL (8-23); Carbon Dioxide 27 mEq/L (23-29); Chloride 100 mEq/L (98-107); Globulin 2.2 g/dL (2.4-3.5); Glucose 109 mg/dL (70-105); Osmolality,Calculated 282 (280-300); Potassium 3.5 mEq/L (3.5-5.1); Sodium 135 mEq/L (136-145); Total Protein 6.1 g/dL (6.4-8.9); eGFR For African Americans > 60 (> 60); eGFR For Non-African Americans > 60 (> 60)
[2017-11-14 06:07] LABS: Platelet Count 72 K/mcL (140-400)
[2017-11-14] MEDS: BuPROPion XL (24 HR) 150 MG TABLET PO SCH (07:15)
[2017-11-14] MEDS: *HR* OxyCODONE/APAP 7.5/325 TABLET PO PRN ×3 (07:19→16:27)
[2017-11-14] MEDS: Furosemide 40 MG TABLET PO SCH ×2 (07:19→16:27)
[2017-11-14] MEDS: Fluticasone Propionate Nasal 50 MCG/SPRAY BOTTLE NS SCH (07:20)
[2017-11-14] MEDS: Gabapentin 300 MG CAPSULE PO SCH ×2 (07:21→21:00)
[2017-11-14] MEDS: Isosorbide MONOnitrate (24 HR) 60 MG TAB.ER.24H PO SCH (07:21)
[2017-11-14] MEDS: Ranolazine 500 MG TAB.ER.12H PO SCH ×2 (07:22→20:59)
[2017-11-14] MEDS: Tiotropium 18 MCG inhalation IH SCH (07:51)
--- NOTE | 2017-11-14 11:28 | Internal Med Progress Note ---
Date of Encounter: 11/14/17 Time of Encounter: 09:00 - Assessment and plan (1) Gastroenteritis Current Visit: Yes Status: Acute Assessment and plan: Appears to be resolving. Continue supportive care. Monitor. Vitals remained stable. Patient is afebrile. Blood cell count is down to 6.2 from 14.7 on admission. No further nausea or vomiting. No diarrhea. Advance diet as tolerated. 11/14: Continuing to improve. Suspect acute viral gastroenteritis. Abdominal discomfort is improved. Recall his CT abdomen and pelvis with IV contrast on admission showed findings of gastroenteritis versus partial bowel obstruction. Patient has known cirrhosis with splenomegaly, he did not have ascites on this film. Today we will advance diet as tolerated. Increase activity. Anticipate discharge either later today or in the morning, if he continues to do well. If abdominal pain does not resolve completely, would recommend consideration for EGD. Certainly could be done as an outpatient. He states he has had one a few years ago and was told it was normal. He has no bleeding. (2) Liver cirrhosis Current Visit: Yes Status: Chronic Assessment and plan: Stable. No acute decompensation (3) CAD (coronary artery disease) Current Visit: No Status: Acute Assessment and plan: Stable, no angina Continue home medication Qualifiers: Coronary Disease-Associated Artery/Lesion type: [place] artery [place] vs. transplanted heart: [place] heart Associated angina: with unstable angina Qualified Code(s): I25.110 - Atherosclerotic heart disease of [place] coronary artery with unstable angina pectoris (4) COPD (chronic obstructive pulmonary disease) Current Visit: No Status: Chronic Assessment and plan: Stable, no evidence of acute exacerbation. Continue home medications. Qualifiers: COPD type: unspecified COPD Qualified Code(s): J44.9 - Chronic obstructive pulmonary disease, unspecified (5) Hypertension Current Visit: No Status: Chronic Assessment and plan: Blood Pressure controlled. Qualifiers: Hypertension type: essential hypertension Qualified Code(s): I10 - Essential (primary) hypertension (6) Morbid obesity with BMI of 50.0-59.9, adult Current Visit: No Status: Chronic (7) Obstructive sleep apnea Current Visit: No Status: Chronic Assessment and plan: On CPAP, compliant. - Time Spent With Patient Total time spent is greater than 50% in coordination of care (as documented) at patient's floor/unit and/or counseling patient: 25 - 35 minutes - Subjective Interval history: Mr. Malin is a 62 year old male with history of stage III nonalcoholic liver cirrhosis, shortness of breath, COPD, "mild" heart attack 2016, and hypertension. Patient indicated he also has a heart stent. Today he presents with abdominal pain that began yesterday morning. He indicated that he typically has diarrhea at home but yesterday he was constipated. He describes pain as sharp, in the epigastric area, right upper quadrant that radiates to right flank area. ED discovered patient had mild dilated gas and fluid-filled small bowel loops with decompressed distal loops consistent with a small bowel obstruction. Surgery was consulted in the ED and a second CT was completed with contrast ,which suggested gastroenteritis instead. Patient will remain nothing by mouth and we will start IV fluids. He has a history of obstructive sleep apnea and will supply oxygen when necessary. Surgery will not follow the patient at this time, please call if needed. 11/13: Patient states he is feeling improved. Still having some mild epigastric discomfort. No further nausea or vomiting presently. He has not had any bowel movements today but states they frequently are loose. Chills. No chest pain or shortness of breath. 11/14: Patient continues to improve. Epigastric pain is near completely resolved. No nausea or vomiting. No bowel movement today. He did have 2 loose stools last night. He states he is feeling much better, stronger. No fevers or chills. Asking to advance his diet. - Constitutional Vitals: Temp Pulse Resp BP Pulse Ox 98.2 F 71 15 115/69 93 11/14/17 10:34 11/14/17 10:34 11/14/17 10:34 11/14/17 10:34 11/14/17 10:34 General appearance: Present: cooperative, A&O X 3, morbidly obese - Head Head exam: Present: atraumatic, normocephalic - Eye Eye exam: Present: PERRL, conjuntiva pink, sclera anicteric Pupils: Present: PERRL - Neck Neck exam general surgery: Present: supple, trachea midline. Absent: lymphadenopathy - Respiratory Respiratory exam: Present: CTAB. Absent: accessory muscle use, rales, rhonchi, wheezes - Cardiovascular Cardiovascular exam: Present: RRR, +S1, +S2. Absent: diastolic murmur, gallop, rubs, systolic murmur - GI/Abdominal GI/Abdominal exam: Present: normal bowel sounds, soft, tenderness (Abdomen is obese, mildly tender in the mid abdomen. Much improved from yesterday), no peritoneal signs. Absent: distended - Extremities Exam Extremities exam: Present: pedal edema, warm, radial pulses palpable and symmetrical. Absent: calf tenderness, cyanotic - Neurological Exam Neurological exam: Present: CN II-XII intact, oriented X3, no focal deficits. Absent: pronater drift, facial droop, speech deficit - Skin Skin exam: Present: dry, intact Internal Medicine: Result - Labs CBC & Chem 7: 11/14/17 05:22 11/14/17 05:22 Labs: Short CBC 11/14/17 Range/Units 05:22 WBC 7.4 (4.3-11.1) K/mcL Hgb 11.7 L (12.9-16.9) g/dL Hct 37.7 (37.5-50.1) % Plt Count 72 L (140-400) K/mcL Neutrophils # 5.3 (1.6-8.9) K/mcL BMP 11/14/17 05:22 Sodium 135 L Potassium 3.5 Chloride 100 Carbon Dioxide 27 BUN 17 Creatinine 1.10 Glucose 109 H Calcium 9.0 Liver Function 11/14/17 Range/Units 05:22 Total Bilirubin 1.6 H (0.3-1.0) mg/dL AST 18 (13-39) Units/L ALT 11 (7-52) Units/L Alkaline Phosphatase 51 (34-104) Units/L Albumin 3.9 (3.5-5.7) g/dL - ABG Interpretation ABG results: PT/INR, D-dimer PT 11.7 Seconds (9.4-12.1) 11/12/17 05:58 - VTE Documentation of Mechanical Device: Venous foot pump, device Consult Discharge Plan - Plan Referrals: Carl Boo MD [Primary Care Provider] -
[2017-11-14] MEDS ORDERED: Ondansetron 4 MG/2 ML VIAL IVP PRN (11:38)
--- NOTE | 2017-11-14 15:21 | Discharge Summary ---
Date of Encounter: 11/14/17 Time of Encounter: 11:00 - Discharge Diagnosis (1) Gastroenteritis Status: Acute (2) Liver cirrhosis Status: Chronic (3) CAD (coronary artery disease) Status: Acute Qualifiers: Coronary Disease-Associated Artery/Lesion type: [place] artery [place] vs. transplanted heart: [place] heart Associated angina: with unstable angina Qualified Code(s): I25.110 - Atherosclerotic heart disease of [place] coronary artery with unstable angina pectoris (4) COPD (chronic obstructive pulmonary disease) Status: Chronic Qualifiers: COPD type: unspecified COPD Qualified Code(s): J44.9 - Chronic obstructive pulmonary disease, unspecified (5) Hypertension Status: Chronic Qualifiers: Hypertension type: essential hypertension Qualified Code(s): I10 - Essential (primary) hypertension (6) Morbid obesity with BMI of 50.0-59.9, adult Status: Chronic (7) Obstructive sleep apnea Status: Chronic Hospital course: Mr. Malin is a 62 year old male - Time Spent with Patient Total time spent providing and/or coordinating discharge services: - Discharge Medications Home Medications: Clopidogrel [Plavix] 75 mg PO DAILY 10/29/15 [History] Furosemide [Lasix] 40 mg PO BID 10/29/15 [History] Metoprolol [Lopressor] 25 mg PO BID 10/29/15 [History] Montelukast [Singulair] 10 mg PO DAILY 10/29/15 [History] Pantoprazole Sodium 40 mg PO DAILY 10/29/15 [History] Pravastatin Sodium [Pravachol] 20 mg PO DAILY 10/29/15 [History] Albuterol Neb [Proventil Neb] 2.5 mg IH Q6H PRN 10/31/15 [History] Albuterol Sulfate [Albuterol Inhaler] 2 puff IH Q4HR PRN 10/31/15 [History] Fluticasone Propionate Nasal [Flonase] 2 spr NS DAILY 10/31/15 [History] Gabapentin [Neurontin] 900 mg PO BID 10/31/15 [History] Spironolactone [Aldactone] 100 mg PO BID 01/28/16 [History] BuPROPion XL (24 HR) [Wellbutrin Xl] 150 mg PO DAILY 09/08/16 [History] Rifaximin [Xifaxan] 550 mg PO BID 09/08/16 [History] Azithromycin [Azithromycin] 250 mg PO MOWEFR 11/12/17 [History] Ferrous Sulfate 325 mg PO DAILY 11/12/17 [History] Isosorbide MONOnitrate (24 HR) [Imdur] 120 mg PO DAILY 11/12/17 [History] Potassium Chloride [Klor-Con 10] 10 meq PO DAILY 11/12/17 [History] Ranolazine [Ranexa] 500 mg PO BID 11/12/17 [History] Umeclidinium [place] [Incruse Ellipta] 1 puff IH DAILY 11/12/17 [History] Allergies/Adverse Reactions: 3 Allergy/AdvReac Type Severity Reaction Status Date / Time JUSTUS Inhibitors AdvReac Cough Verified 11/12/17 14:00 [email or web address] [From Nubain] AdvReac See Verified 11/12/17 14:00 Comments Date of admission: 11/12/17 12:32 Primary care physician: Carl Boo MD Discharging clinician: Jose Farr Anticipated date of discharge: 11/14/17 - Constitutional Vitals: Temp Pulse Resp BP Pulse Ox 97.5 F L 85 15 159/85 95 11/14/17 14:31 11/14/17 14:31 11/14/17 14:31 11/14/17 14:31 11/14/17 14:31 General appearance: Present: cooperative, A&O X 3, morbidly obese - Patient Status Condition: Good - Discharge Instructions Follow Up With: Carl Boo MD [Primary Care Provider] - - VTE Documentation of Mechanical Device: Venous foot pump, device
--- NOTE | 2017-11-14 21:39 | Electrocardiograph Report ---
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
[2017-11-15] MEDS: Tiotropium 18 MCG inhalation IH SCH (07:45)
[2017-11-15] MEDS: Ranolazine 500 MG TAB.ER.12H PO SCH (09:04)
[2017-11-15] MEDS: Gabapentin 300 MG CAPSULE PO SCH (09:04)
[2017-11-15] MEDS: Furosemide 40 MG TABLET PO SCH ×2 (09:04→15:35)
[2017-11-15] MEDS: Isosorbide MONOnitrate (24 HR) 60 MG TAB.ER.24H PO SCH (09:04)
[2017-11-15] MEDS: BuPROPion XL (24 HR) 150 MG TABLET PO SCH (09:05)
[2017-11-15] MEDS: Fluticasone Propionate Nasal 50 MCG/SPRAY BOTTLE NS SCH (09:05)
[2017-11-15 15:15] VITALS: BP 142/86
--- NOTE | 2017-11-15 15:16 | Discharge Summary ---
- NOTES TO OUTPATIENT PROVIDER Notes to Outpatient Provider: f/u with PCP in one week. f/u with GI Dr. Patel in one week, you may need out pt EGD Date of Encounter: 11/15/17 Time of Encounter: 15:14 - Discharge Diagnosis (1) Gastroenteritis Priority: Primary Status: Acute (2) Liver cirrhosis Priority: Secondary Status: Chronic (3) Morbid obesity with BMI of 50.0-59.9, adult Priority: Secondary Status: Chronic (4) COPD (chronic obstructive pulmonary disease) Priority: Secondary Status: Chronic Qualifiers: COPD type: unspecified COPD Qualified Code(s): J44.9 - Chronic obstructive pulmonary disease, unspecified (5) Hypertension Priority: Secondary Status: Chronic Qualifiers: Hypertension type: essential hypertension Qualified Code(s): I10 - Essential (primary) hypertension (6) Obstructive sleep apnea Priority: Secondary Status: Chronic (7) CAD (coronary artery disease) Priority: Secondary Status: Acute Qualifiers: Coronary Disease-Associated Artery/Lesion type: [place] artery [place] vs. transplanted heart: [place] heart Associated angina: with unstable angina Qualified Code(s): I25.110 - Atherosclerotic heart disease of [place] coronary artery with unstable angina pectoris Hospital course: Mr. Malin is a 62 year old male with history of stage III nonalcoholic liver cirrhosis, shortness of breath, COPD,CAD, and hypertensionpresented to ED with abdominal pain x 2 days. He described pain as sharp, in the epigastric area, right upper quadrant that radiates to right flank area. ED discovered patient had mild dilated gas and fluid-filled small bowel loops with decompressed distal loops consistent with a small bowel obstruction. Surgery was consulted in the ED and a second CT was completed with contrast ,which suggested gastroenteritis instead. Pt was admitted in the hospital and placed him NPO. he was started on symptomatic and supportive care. He remained afebrile and his WBC were WNL. We advanced his diet, pt has been tolerating diet ok, had a normal BM today. Pt still has some epigastric abdominal discomfort at times. So recommend to f/u with GI Dr. Patel as an out pt for EGD. he denied any melena / BRBPR. His Hb stable @ 11.7 - Time Spent with Patient Total time spent providing and/or coordinating discharge services: - Discharge Medications Home Medications: Clopidogrel [Plavix] 75 mg PO DAILY 10/29/15 [History] Furosemide [Lasix] 40 mg PO BID 10/29/15 [History] Metoprolol [Lopressor] 25 mg PO BID 10/29/15 [History] Montelukast [Singulair] 10 mg PO DAILY 10/29/15 [History] Pantoprazole Sodium 40 mg PO DAILY 10/29/15 [History] Pravastatin Sodium [Pravachol] 20 mg PO DAILY 10/29/15 [History] Albuterol Neb [Proventil Neb] 2.5 mg IH Q6H PRN 10/31/15 [History] Albuterol Sulfate [Albuterol Inhaler] 2 puff IH Q4HR PRN 10/31/15 [History] Fluticasone Propionate Nasal [Flonase] 2 spr NS DAILY 10/31/15 [History] Gabapentin [Neurontin] 900 mg PO BID 10/31/15 [History] Spironolactone [Aldactone] 100 mg PO BID 01/28/16 [History] BuPROPion XL (24 HR) [Wellbutrin Xl] 150 mg PO DAILY 09/08/16 [History] Rifaximin [Xifaxan] 550 mg PO BID 09/08/16 [History] Azithromycin 250 mg PO MOWEFR 11/12/17 [History] Ferrous Sulfate 325 mg PO DAILY 11/12/17 [History] Isosorbide MONOnitrate (24 HR) [Imdur] 120 mg PO DAILY 11/12/17 [History] Potassium Chloride [Klor-Con 10] 10 meq PO DAILY 11/12/17 [History] Ranolazine [Ranexa] 500 mg PO BID 11/12/17 [History] Umeclidinium [place] [Incruse Ellipta] 1 puff IH DAILY 11/12/17 [History] Allergies/Adverse Reactions: 3 Allergy/AdvReac Type Severity Reaction Status Date / Time JUSTUS Inhibitors AdvReac Cough Verified 11/12/17 14:00 [email or web address] [From Nubain] AdvReac See Verified 11/12/17 14:00 Comments Date of admission: 11/12/17 12:32 Primary care physician: Carl Boo MD - Constitutional Vitals: Temp Pulse Resp BP Pulse Ox 97.8 F 70 16 98/58 92 11/15/17 11:08 11/15/17 11:08 11/15/17 11:08 11/15/17 11:08 11/15/17 11:08 General appearance: Present: cooperative, A&O X 3, morbidly obese - Head Head exam: Present: atraumatic, normal inspection - Neck Neck exam general surgery: Present: supple - Respiratory Respiratory exam: Present: decreased breath sounds. Absent: rales, respiratory distress, rhonchi, wheezes - Cardiovascular Cardiovascular exam: Present: RRR, +S1, +S2. Absent: tachycardia - GI/Abdominal GI/Abdominal exam: Present: distended, normal bowel sounds, soft. Absent: rebound, rigid, tenderness - Extremities Exam Extremities exam: Absent: calf tenderness, pedal edema, tenderness - Back Exam Back exam: Absent: CVA tenderness (L), CVA tenderness (R) - Neurological Exam Neurological exam: Present: alert, oriented X3 - Psychiatric Psychiatric exam: Present: normal affect, normal mood - Patient Status Disposition: Home, Self-Care Condition: Good Overall status at discharge: patient is back to baseline - Discharge Instructions Follow Up With: Carl Boo MD [Primary Care Provider] - - Diet and Activity Activity: increase activity as tolerated Diet: low salt diet - VTE Documentation of Mechanical Device: Venous foot pump, device
[2017-11-15] MEDS: *HR* OxyCODONE/APAP 7.5/325 TABLET PO PRN (15:35)
[2017-11-15] MEDS: Azithromycin 250 MG TABLET PO SCH (15:35)
== END 2017-11-15 16:44 | disposition home or self-care (01) ==
LOC: EMEROO 05:42 → 3ANU 05:42
PROVIDERS: ADMIT Family Medicine; ATTEND Family Medicine

== ENCOUNTER 2019-06-16 08:05 | Inpatient (IN) ==
[2019-06-16] MEDS ORDERED: Ondansetron 4 MG/2 ML VIAL IVP ONE (08:19)
[2019-06-16] MEDS ORDERED: 0.9 % Sodium Chloride 1,000 ML IVC ONE ×2 (08:19→09:27)
[2019-06-16] MEDS ORDERED: Pantoprazole 40 MG VIAL IVP ONE (08:34)
[2019-06-16] MEDS ORDERED: *HR* FentaNYL (PF) 100 MCG/2 ML VIAL IVP ONE (08:47)
[2019-06-16 08:51] LABS: Basophils # 0.2 K/mcL (0.0-0.2); Basophils % 0.8 %; Eosinophils % 0.1 %; Hemoglobin 15.2 g/dL (12.9-16.9); Immature Granulocytes % 0.7 % (0-4); Lymphocytes # 0.8 K/mcL (0.6-4.6); Mean Corpuscular HGB Conc 31.7 g/dL (31.6-35.5); Mean Corpuscular Hemoglobin 25.9 pg (28.0-33.3); Mean Corpuscular Volume 81.8 fL (83.0-100.0); Mean Platelet Volume 11.7 fL (9.4-12.4); Monocytes # 1.1 K/mcL (0.0-1.3); Monocytes % 5.6 %; Neutrophils # 16.8 K/mcL (1.6-8.9); Platelet Count 107 K/mcL (140-400); Red Blood Count 5.87 M/mcL (4.19-5.50); Red Cell Distribution Width 15.5 % (11.5-14.5); Segmented Neutrophils % 88.8 %; White Blood Count 18.9 K/mcL (4.3-11.1)
[2019-06-16 09:10] LABS: Alanine Aminotransferase 18 Units/L (7-52); Albumin 4.4 g/dL (3.5-5.7); Albumin/Globulin Ratio 1.7 (1.1-2.2); Alkaline Phosphatase 74 Units/L (34-104); Aspartate Amino Transferase 25 Units/L (13-39); BUN/Creatinine Ratio 22 (6-26); Bilirubin,Total 2.8 mg/dL (0.3-1.0); Blood Urea Nitrogen 19 mg/dL (8-23); Calcium 10.7 mg/dL (8.6-10.3); Carbon Dioxide 25 mEq/L (23-29); Chloride 99 mEq/L (98-107); Globulin 2.6 g/dL (2.4-3.5); Glucose 196 mg/dL (70-105); Lipase 32 Units/L (11-82); Osmolality,Calculated 292 (280-300); Potassium 3.9 mEq/L (3.5-5.1); Sodium 137 mEq/L (136-145); eGFR For African Americans > 60 (> 60); eGFR For Non-African Americans > 60 (> 60)
[2019-06-16] MEDS ORDERED: *HR* Promethazine 25 MG/ML VIAL IVP PRN (13:15)
[2019-06-16] MEDS ORDERED: 0.9 % Sodium Chloride 1,000 ML IVC SCH (13:15)
[2019-06-16] MEDS ORDERED: Naloxone 0.4 MG/ML INJ IVP PRN (13:15)
[2019-06-16] MEDS ORDERED: Ondansetron 4 MG/2 ML VIAL IVP PRN (13:15)
[2019-06-16] MEDS ORDERED: Ipratropium/Albuterol Neb 3 ML IH PRN (13:17)
[2019-06-16 14:51] LABS: Magnesium 1.5 mg/dL (1.6-2.6); Phosphorous 2.4 mg/dL (2.7-4.5)
[2019-06-16 22:35] LABS: Bilirubin,Urine Small (Negative); Blood,Urine Negative (Negative); Clarity,Urine Clear (Clear); Color,Urine Dark Yellow (Yellow); Glucose,Urine (UA) Normal (Normal); Ketones,Urine Negative (Negative); Leukocyte Esterase,Urine Negative (Negative); Nitrite,Urine Negative (Negative); Protein,Urine Negative (Neg-Trace); Urobilinogen,Urine Normal (Normal)
[2019-06-17 07:00] LABS: Red Cell Distribution Width 15.9 % (11.5-14.5)
[2019-06-17 07:02] LABS: Hematocrit 41.3 % (37.5-50.1); Hemoglobin 12.8 g/dL (12.9-16.9); Immature Platelets 7.9 % (1.1-6.1); Mean Corpuscular Hemoglobin 25.8 pg (28.0-33.3); Mean Corpuscular Volume 83.3 fL (83.0-100.0); Mean Platelet Volume 12.2 fL (9.4-12.4); Red Blood Count 4.96 M/mcL (4.19-5.50); White Blood Count 7.1 K/mcL (4.3-11.1)
[2019-06-17 07:18] LABS: BUN/Creatinine Ratio 23 (6-26); Blood Urea Nitrogen 20 mg/dL (8-23); Carbon Dioxide 26 mEq/L (23-29); Chloride 105 mEq/L (98-107); Glucose 129 mg/dL (70-105); Magnesium 1.5 mg/dL (1.6-2.6); Osmolality,Calculated 302 (280-300); Phosphorous 2.6 mg/dL (2.7-4.5); Potassium 3.4 mEq/L (3.5-5.1); Sodium 144 mEq/L (136-145); eGFR For African Americans > 60 (> 60); eGFR For Non-African Americans > 60 (> 60)
[2019-06-17] MEDS ORDERED: Potassium Phosphate 44 MEQ in 0.9 % Sodium Chloride 250 ML IVPB ONE (07:29)
[2019-06-17] MEDS ORDERED: Ipratropium/Albuterol Neb 3 ML ONE (11:24)
[2019-06-17] MEDS: Budesonide/Formoterol 160/4.5 1 PUFF INH IH SCH ×2 (11:30→20:05)
[2019-06-17] MEDS: Ipratropium/Albuterol Neb 3 ML IH SCH ×4 (11:30→23:07)
[2019-06-17] MEDS ORDERED: Chloraseptic Spray 177 ML BOTTLE MM PRN (12:06)
[2019-06-17] MEDS: MethylPREDNISolone 40 MG/ML VIAL IVP SCH ×2 (12:59→16:33)
[2019-06-17] MEDS: 0.9 % Sodium Chloride 1,000 ML IVC SCH ×2 (14:34→21:43)
[2019-06-17] MEDS ORDERED: *HR* FentaNYL (PF) 100 MCG/2 ML VIAL IVP PRN (14:42)
[2019-06-17] MEDS ORDERED: Morphine Sulfate 2 MG/ML SYRINGE IVP ONE (20:46)
[2019-06-17] MEDS ORDERED: *HR* Metoprolol 5 MG/5 ML VIAL IVP ONE (21:12)
[2019-06-17 21:31] LABS: Troponin I < 0.03 ng/mL (< 0.04)
[2019-06-17 22:04] LABS: Potassium 3.8 mEq/L (3.5-5.1)
[2019-06-17] MEDS ORDERED: Aspirin 325 MG TABLET PO SCH (23:45)
[2019-06-18] MEDS: MethylPREDNISolone 40 MG/ML VIAL IVP SCH ×4 (00:11→23:21)
[2019-06-18] MEDS: Ipratropium/Albuterol Neb 3 ML IH SCH ×6 (03:25→23:45)
[2019-06-18 04:37] LABS: Phosphorous 2.3 mg/dL (2.7-4.5)
[2019-06-18] MEDS: 0.9 % Sodium Chloride 1,000 ML IVC SCH ×2 (04:47→20:48)
[2019-06-18] MEDS: Budesonide/Formoterol 160/4.5 1 PUFF INH IH SCH ×2 (07:19→19:49)
[2019-06-18] MEDS ORDERED: Potassium Phosphate 44 MEQ in 0.9 % Sodium Chloride 250 ML IVPB ONE (07:48)
[2019-06-18 08:14] LABS: Basophils % 0.1 %; Hematocrit 42.4 % (37.5-50.1); Hemoglobin 13.5 g/dL (12.9-16.9); Immature Granulocytes % 0.8 % (0-4); Lymphocytes # 0.3 K/mcL (0.6-4.6); Lymphocytes % 3.7 %; Mean Corpuscular HGB Conc 31.8 g/dL (31.6-35.5); Mean Corpuscular Volume 81.7 fL (83.0-100.0); Mean Platelet Volume 11.2 fL (9.4-12.4); Monocytes # 0.2 K/mcL (0.0-1.3); Monocytes % 2.4 %; Neutrophils # 8.3 K/mcL (1.6-8.9); Red Blood Count 5.19 M/mcL (4.19-5.50); Red Cell Distribution Width 15.6 % (11.5-14.5); White Blood Count 8.9 K/mcL (4.3-11.1)
[2019-06-18 08:16] LABS: Platelet Count 62 K/mcL (140-400)
[2019-06-18 08:30] LABS: BUN/Creatinine Ratio 23 (6-26); Blood Urea Nitrogen 20 mg/dL (8-23); Calcium 8.9 mg/dL (8.6-10.3); Carbon Dioxide 22 mEq/L (23-29); Chloride 107 mEq/L (98-107); Glucose 219 mg/dL (70-105); Osmolality,Calculated 305 (280-300); Potassium 3.7 mEq/L (3.5-5.1); Sodium 143 mEq/L (136-145); eGFR For African Americans > 60 (> 60); eGFR For Non-African Americans > 60 (> 60)
[2019-06-18] MEDS ORDERED: Perflutren Lipid Microsphere 1.3 ML in 0.9 % Sodium Chloride 8.7 ML IVP ONE (11:07)
[2019-06-19] MEDS ORDERED: *HR* Metoprolol 5 MG/5 ML VIAL IVP ONE (00:41)
[2019-06-19 02:22] LABS: Basophils % 0.1 %; Hematocrit 38.3 % (37.5-50.1); Immature Granulocytes % 0.7 % (0-4); Mean Corpuscular HGB Conc 31.1 g/dL (31.6-35.5); Mean Corpuscular Hemoglobin 26.4 pg (28.0-33.3); Red Cell Distribution Width 15.9 % (11.5-14.5)
[2019-06-19 02:24] LABS: Hemoglobin 11.9 g/dL (12.9-16.9); Immature Platelets 6.7 % (1.1-6.1); Lymphocytes # 0.3 K/mcL (0.6-4.6); Lymphocytes % 2.8 %; Mean Corpuscular Volume 84.9 fL (83.0-100.0); Monocytes # 0.2 K/mcL (0.0-1.3); Neutrophils # 8.3 K/mcL (1.6-8.9); Red Blood Count 4.51 M/mcL (4.19-5.50); Segmented Neutrophils % 94.4 %; White Blood Count 8.8 K/mcL (4.3-11.1)
[2019-06-19 02:26] LABS: Platelet Count 61 K/mcL (140-400)
[2019-06-19 02:41] LABS: BUN/Creatinine Ratio 28 (6-26); Blood Urea Nitrogen 20 mg/dL (8-23); Calcium 8.5 mg/dL (8.6-10.3); Carbon Dioxide 22 mEq/L (23-29); Chloride 111 mEq/L (98-107); Glucose 179 mg/dL (70-105); Osmolality,Calculated 303 (280-300); Potassium 3.2 mEq/L (3.5-5.1); Sodium 143 mEq/L (136-145); eGFR For African Americans > 60 (> 60); eGFR For Non-African Americans > 60 (> 60)
[2019-06-19 02:42] LABS: Phosphorous 2.8 mg/dL (2.7-4.5)
[2019-06-19] MEDS: Ipratropium/Albuterol Neb 3 ML IH SCH ×6 (03:12→23:47)
[2019-06-19] MEDS ORDERED: Perflutren Lipid Microsphere 1.3 ML in 0.9 % Sodium Chloride 8.7 ML IVP ONE (07:18)
[2019-06-19] MEDS: MethylPREDNISolone 40 MG/ML VIAL IVP SCH (09:28)
[2019-06-19] MEDS ORDERED: Azithromycin 250 MG TABLET PO SCH (10:45)
[2019-06-19] MEDS: Budesonide/Formoterol 160/4.5 1 PUFF INH IH SCH ×2 (11:21→20:31)
[2019-06-19] MEDS ORDERED: Potassium Chloride 40 MEQ, Lidocaine 1% 2 ML in 0.9 % Sodium Chloride 500 ML IVPB ONE (11:32)
[2019-06-19] MEDS: Gabapentin 300 MG CAPSULE PO SCH ×2 (17:20→21:41)
[2019-06-19] MEDS: Isosorbide MONOnitrate (24 HR) 60 MG TAB.ER.24H PO SCH (21:41)
[2019-06-20] MEDS: Ipratropium/Albuterol Neb 3 ML IH SCH ×2 (03:36→07:31)
[2019-06-20 04:24] LABS: Basophils % 0.2 %; Mean Corpuscular Hemoglobin 25.9 pg (28.0-33.3); Red Cell Distribution Width 15.9 % (11.5-14.5)
[2019-06-20 04:25] LABS: Hematocrit 36.8 % (37.5-50.1); Immature Granulocytes % 1.1 % (0-4); Immature Platelets 6.8 % (1.1-6.1); Lymphocytes # 0.5 K/mcL (0.6-4.6); Lymphocytes % 8.1 %; Mean Corpuscular HGB Conc 29.9 g/dL (31.6-35.5); Mean Corpuscular Volume 86.6 fL (83.0-100.0); Mean Platelet Volume 11.7 fL (9.4-12.4); Monocytes # 0.3 K/mcL (0.0-1.3); Monocytes % 4.2 %; Red Blood Count 4.25 M/mcL (4.19-5.50); Segmented Neutrophils % 86.4 %; White Blood Count 6.4 K/mcL (4.3-11.1)
[2019-06-20 04:26] LABS: Neutrophils # 5.5 K/mcL (1.6-8.9); Platelet Count 58 K/mcL (140-400)
[2019-06-20 04:45] LABS: BUN/Creatinine Ratio 26 (6-26); Blood Urea Nitrogen 19 mg/dL (8-23); Calcium 8.7 mg/dL (8.6-10.3); Carbon Dioxide 23 mEq/L (23-29); Chloride 108 mEq/L (98-107); Glucose 134 mg/dL (70-105); Osmolality,Calculated 292 (280-300); Phosphorous 2.3 mg/dL (2.7-4.5); Sodium 139 mEq/L (136-145); eGFR For African Americans > 60 (> 60); eGFR For Non-African Americans > 60 (> 60)
[2019-06-20] MEDS: 0.9 % Sodium Chloride 1,000 ML IVC SCH (05:17)
[2019-06-20] MEDS: Budesonide/Formoterol 160/4.5 1 PUFF INH IH SCH (07:30)
[2019-06-20 07:32] VITALS: BP 113/58
[2019-06-20] MEDS ORDERED: Tiotropium 18 MCG inhalation IH SCH (09:00)
[2019-06-20] MEDS ORDERED: Aspirin Enteric Coated 81 MG Tablet PO SCH (09:00)
[2019-06-20] MEDS ORDERED: Fluticasone Propionate Nasal 50 MCG/SPRAY BOTTLE NS SCH (09:00)
[2019-06-20] MEDS ORDERED: predniSONE 20 MG TABLET PO SCH (09:00)
[2019-06-20] MEDS: Gabapentin 300 MG CAPSULE PO SCH (09:23)
[2019-06-20] MEDS: Isosorbide MONOnitrate (24 HR) 60 MG TAB.ER.24H PO SCH (09:23)
== END 2019-06-20 11:12 | disposition home or self-care (01) | DRG 388 ==
LOC: 3ANU 08:05 → EMEROOARM 08:05 → 3ANU 12:59
PROVIDERS: ADMIT Family Medicine; ATTEND Family Medicine